=== PATIENT | male | born 1930 | race Caucasian/White ===

== ENCOUNTER 2017-01-23 21:05 | Inpatient (IN) | payer MEDICARE ==
[~2017-01-23] VITALS: Ht 149.9 cm; Wt 80.3 kg
[~2017-01-23 21:05] MED LIST: LISI40TA4 PO; METO25TA6 PO
--- NOTE | 2017-01-23 21:15 | NUR ---
BB DAUGHTER FOR ALTERED MENTAL STATUS. PT AOX3 WITH PERIODS OF CONFUSION. RR EVEN AND UNLABORED. NO SOB NOTED. NAD NOTED. NO NVD AT THIS TIME. PT GOWNED AND PLACED ON MONITOR WAITING FOR MD WILLS
[2017-01-23] MEDS ORDERED: CLOP75TA2 PO (21:18)
--- NOTE | 2017-01-23 21:22 | NUR ---
DR. ALBA AT BEDSIDE FOR EVAL.
[2017-01-23] MEDS ORDERED: IV NS 0.9% 500 ML BAG IV ONE (21:30)
[2017-01-23 21:35] LABS: BASOPHILS % (AUTO) 0.4 % (0.0-2.0); EOSINOPHILS # (AUTO) 0.1 /CMM (0.0-0.7); EOSINOPHILS % (AUTO) 0.9 % (0.0-6.0); HEMATOCRIT 42 % (39-51); HEMOGLOBIN 13.9 g/dL (13.5-17.5); LYMPHOCYTES # (AUTO) 0.6 /CMM (0.8-4.8); LYMPHOCYTES % (AUTO) 6.9 % (20.0-44.0); MEAN CORPUSCULAR HEMOGLOBIN 28 PG (26.0-33.0); MEAN CORPUSCULAR HGB CONC 33 g/dl (31.0-36.0); MEAN CORPUSCULAR VOLUME 86 fL (80-96); MONOCYTES # (AUTO) 0.4 /CMM (0.1-1.30); MONOCYTES % (AUTO) 4.6 % (2.0-12.0); NEUTROPHILS # (AUTO) 7.4 /CMM (1.8-8.9); NEUTROPHILS % (AUTO) 87.2 % (43.0-81.0); PLATELET COUNT (AUTO) 280 /CMM (150-450); RDW COEFFICIENT OF VARIATION 14.9 (11.5-15.0); RED BLOOD CELL COUNT(AUTO) 4.92 MIL/uL (4.5-6.0); WHITE BLOOD COUNT (AUTO) 8.5 K/uL (4.3-11.0)
[2017-01-23 21:45] LABS: CALCIUM, SERUM 9.3 mg/dL (8.5-10.1); CARBON DIOXIDE 28 mmol/L (21-32); CHLORIDE 103 mmol/L (98-107); CREATININE 1.1 mg/dL (0.6-1.3); GLUCOSE 155 mg/dL (74-106); POTASSIUM 4.1 mmol/L (3.5-5.1); SODIUM SERUM 138 mmol/L (136-145); UREA NITROGEN, BLOOD 24 mg/dL (7-18)
[2017-01-23 21:49] LABS: INR 0.95 (0.87-1.13); PROTHROMBIN TIME 9.9 SECS (9.5-12.7)
--- NOTE | 2017-01-23 21:50 | NUR ---
URINE COLLECTED. CALLED LAB FOR ANALYTICAL STATISTICIAN.
[2017-01-23 21:51] LABS: ALANINE AMINOTRANSFERASE 28 U/L (12-78); ALBUMIN 3.9 g/dL (3.4-5.0); ALKALINE PHOSPHATASE 91 U/L (46-116); ASPARTATE AMINOTRANSFERASE 27 U/L (15-37); BILIRUBIN,DIRECT 0.1 mg/dL (0.0-0.2); BILIRUBIN,TOTAL 0.4 mg/dL (0.2-1.0); TOTAL PROTEIN, SERUM 7.6 g/dL (6.4-8.2)
[2017-01-23 21:53] LABS: TROPONIN I 0.017 ng/mL (0.00-0.056)
--- NOTE | 2017-01-23 21:58 | NUR ---
PT TO CT.
[2017-01-23 22:17] LABS: APPEARANCE,URINE CLEAR (CLEAR); BILIRUBIN,URINE NEGATIVE (NEGATIVE); BLOOD, URINE 2+ Ery/uL (NEGATIVE); COLOR,URINE YELLOW (YELLOW); KETONES,URINE NEGATIVE (NEGATIVE); LEUKOCYTE ESTERASE ,URINE NEGATIVE (NEGATIVE); NITRITE, URINE NEGATIVE (NEGATIVE); PROTEIN,URINE NEGATIVE (NEGATIVE); UGLUCOSE NEGATIVE (NEGATIVE); UROBILINOGEN,URINE 0.2 EU/dL (0.2)
[2017-01-23 22:22] LABS: BACTERIA,URINE Few /HPF (None Seen); RBC,URINE 21-50 /HPF (0-2); SQUAMOUS EPITHELIAL CELL,UR Few /HPF (None Seen); WBC,URINE 0-2 /HPF (0-3)
[2017-01-23] MEDS ORDERED: LABETALOL HCL IV 100MG VIAL IV ONE (22:30)
--- NOTE | 2017-01-23 22:37 | NUR ---
TELE 103
--- NOTE | 2017-01-23 22:40 | NUR ---
PT RETURNED FROM CT.
[2017-01-23] MEDS ORDERED: LABETALOL 20 MG/4 ML VIAL ONE (22:48)
[2017-01-23] MEDS ORDERED: hydrALAZINE HCL IV 20 MG VIAL IV PRN (23:30)
--- NOTE | 2017-01-23 23:39 | NUR ---
FELICIA ARAYA AWARE PT'S CURRENT BP. PER MD TO HOLD HYDRAZLINE AT THIS TIME,.
[2017-01-23] MEDS ORDERED: IV NS 0.9% 1,000 ML IV PRN (23:46)
--- NOTE | 2017-01-23 23:55 | NUR ---
COMPLAINT INVESTIGATOR: RECEIVED PT FROM ER VIA EDIE AND ABLE TO WALK TOWARDS BED. A/O X 3 FOR PRIMARY DX OF TIA. ON R/A WT NO ACUTE DISTRESS. NO C/O PAIN OR EVIDENCE OF DISCOMFORT. ABLE TO AMBULATE TO THE RESTROOM. BODY ASSESSMENT DONE WT NO SKIN BREAKDOWN. DAUGHTER AT BEDSIDE. WILL MONITOR BP CLOSELY. SAFETY PRECAUTION NOTED. CALL LIGHT KEPT WITHIN EASY REACH.
--- NOTE | 2017-01-23 23:59 | NUR ---
PT TRANSFERRED PER ACLS PROTOCOL
[2017-01-24] VITALS (9 sets, daily range): BP systolic 122–227; BP diastolic 43–80
[2017-01-24] MEDS ORDERED: ONDANSETRON HCL/PF 4 MG/2 ML VIAL IVP PRN
[2017-01-24] MEDS ORDERED: hydrALAZINE HCL 25 MG TABLET PO PRN
[2017-01-24] MEDS ORDERED: ACETAMINOPHEN 325 MG TABLET PO PRN
[2017-01-24] MEDS ORDERED: ZOLPIDEM TARTRATE 5 MG TABLET PO PRN
[2017-01-24] MEDS ORDERED: ENOXAPARIN SODIUM 40 MG/0.4 ML DISP.SYRIN SQ SCH
[2017-01-24] MEDS ORDERED: LISINOPRIL (20MG) 20 MG TABLET ONE (00:42)
[2017-01-24] MEDS ORDERED: METOPROLOL TARTRATE 50 MG TABLET ONE (00:43)
[2017-01-24] MEDS ORDERED: ENOXAPARIN SODIUM 40 MG/0.4 ML DISP.SYRIN SQ ONE (00:43)
[2017-01-24] MEDS: LISINOPRIL (20MG) 20 MG TABLET PO SCH ×2 (00:53→08:49)
[2017-01-24] MEDS: METOPROLOL TARTRATE 25 MG TABLET PO SCH ×2 (01:15→08:49)
[2017-01-24] MEDS ORDERED: hydrALAZINE HCL 25 MG TABLET ONE (04:20)
--- NOTE | 2017-01-24 04:25 | NUR ---
NETWORK PLANNER: GIVEN HYDRALAZINE 25MG PO ORDERED FOR SBP ABOVE 160. WILL CONTINUE TO MONITOR EFFECTIVITY. PT KEPT WALKING AROUND THE HALLWAY WT STANDBY ASSISTANCE AT ALL TIMES. HE SAID HE WANTED TO URINATE MORE AND WALKING WILL HELP HIM VOID BETTER. HE STATED, "I HAVE A BASHFUL BLADDER". NO C/O OF ABDOMINAL DISCOMFORT AND WAS ABLE TO VOID IN THE RESTROOM. REMAINED A/O X3. SAFETY PRECAUTION NOTED AT ALL TIMES.
--- NOTE | 2017-01-24 05:30 | NUR ---
DISABILITY ATTORNEY: RECHECK BLOOD PRESSURE AND IMPROVED AT 154/78. REMAINED A/O X 3. NO ACUTE DISTRESS, NO C/O PAIN. REMAINS AMBULATORY. SAFETY PRECAUTION NOTED AT ALL TIMES
[2017-01-24 06:25] LABS: BASOPHILS % (AUTO) 0.9 % (0.0-2.0); EOSINOPHILS # (AUTO) 0.1 /CMM (0.0-0.7); EOSINOPHILS % (AUTO) 1.8 % (0.0-6.0); HEMATOCRIT 38 % (39-51); HEMOGLOBIN 12.7 g/dL (13.5-17.5); LYMPHOCYTES # (AUTO) 0.8 /CMM (0.8-4.8); LYMPHOCYTES % (AUTO) 14.3 % (20.0-44.0); MEAN CORPUSCULAR HEMOGLOBIN 29 PG (26.0-33.0); MEAN CORPUSCULAR HGB CONC 33 g/dl (31.0-36.0); MEAN CORPUSCULAR VOLUME 86 fL (80-96); MONOCYTES # (AUTO) 0.4 /CMM (0.1-1.30); MONOCYTES % (AUTO) 7.2 % (2.0-12.0); NEUTROPHILS % (AUTO) 75.8 % (43.0-81.0); PLATELET COUNT (AUTO) 228 /CMM (150-450); RDW COEFFICIENT OF VARIATION 16.2 (11.5-15.0); RED BLOOD CELL COUNT(AUTO) 4.42 MIL/uL (4.5-6.0); WHITE BLOOD COUNT (AUTO) 5.3 K/uL (4.3-11.0)
[2017-01-24 06:45] LABS: CHOLESTEROL 162 mg/dL (<200); HDL CHOLESTEROL 39 mg/dL (40-60); LDL 108 mg/dL (0-99); TRIGLYCERIDES 111 mg/dL (30-150)
[2017-01-24 07:00] LABS: ALANINE AMINOTRANSFERASE 27 U/L (12-78); ALBUMIN 3.3 g/dL (3.4-5.0); ALKALINE PHOSPHATASE 79 U/L (46-116); ASPARTATE AMINOTRANSFERASE 33 U/L (15-37); BILIRUBIN,TOTAL 0.5 mg/dL (0.2-1.0); CALCIUM, SERUM 8.8 mg/dL (8.5-10.1); CHLORIDE 104 mmol/L (98-107); GLUCOSE 100 mg/dL (74-106); MAGNESIUM 1.9 mg/dL (1.8-2.4); PHOSPHORUS 3.2 mg/dL (2.5-4.9); POTASSIUM 4.5 mmol/L (3.5-5.1); SODIUM SERUM 139 mmol/L (136-145); TOTAL PROTEIN, SERUM 6.5 g/dL (6.4-8.2); UREA NITROGEN, BLOOD 20 mg/dL (7-18)
[2017-01-24 07:04] LABS: CARBON DIOXIDE 27 mmol/L (21-32)
--- NOTE | 2017-01-24 07:46 | NUR ---
RN notes: Patient received in stable condition alert awake ox4. able to make needs known. on room air, no breathing difficulty noted. ambulatory in [address] & [facility]. safety measures observed. call light within reach. will continue to monitor.
[2017-01-24] MEDS ORDERED: CLOPIDOGREL BISULFATE 75 MG TABLET PO SCH (09:00)
--- NOTE | 2017-01-24 14:59 | NUR ---
Spoke with daughter Simona [phone], patient lives alone with his pet cat. Prior to admission, patient was ambulatory and independent with adl's. Has no DME or homehealth reported. Daughter is very involved and supportive, does patient groceries 2x/week, Patient pcp is Dr. Dylon Tijerina at [address] [place] [address]. Plan is to return home , daughter will provide ride once discharge. Addendum: 01/24/17 at 1459 by CHERYL ABRAHAM RN Amended: Links added.
[2017-01-24] MEDS ORDERED: ATOR10TA PO (15:00)
--- NOTE | 2017-01-24 16:17 | NUR ---
Social service consult requested by Dr. Valenzuela to assess living situation. Pt. is a 86 year old male who was admitted to [facility] for mental status change and ALOC. Pt. is alert and oriented x 3. Pt. resides alone with his cat at [address] in [place]. [place] Pt's daughter is his caregiver and brings him groceries twice a week. Pt. is independent with his ADL's. No social service needs are requested at this time. Pt. will be going back home once medically cleared.
--- NOTE | 2017-01-24 17:02 | NUR ---
RN NOTES(DISCHARGE NOTE): Patient discharge to home in stable condition alert awake ox4. On room air, breathing pattern regular & unlabored. denies chest pain & discomfort. Discharge instructions given to the patient & Daughter at bedside, verbalize to understand. Stroke education, stroke packet include sign symptoms discussed with patient & written material given to the patient. follow up appointment information given to the daughter, copy placed in the chart. lipitor prescription given to the daughter. before discharge spoke with Michaela ORE SMELTER, reminder about stroke discharge checklist( hospital Protocol), OT, ST evaluation not done yet, according to her patient does not need to get evaluated. Flu vaccine education provide to the patient & daughter, said will follow up with primary doctor. upon discharge, patient & daughter Rajani verbalize to understand discharge instructions. left with all belongings via wheelchair from floor. accompanied by daughter via private car.
[2017-01-24] MEDS ORDERED: ATORVASTATIN 10 MG TABLET PO SCH (22:00)
== END 2017-01-24 17:00 | disposition home or self-care (01) | DRG 79 ==
LOC: ER 21:07 → TELE1 22:49
PROVIDERS: ADMIT Nurse Practitioner Acute Care; ATTEND Nurse Practitioner Acute Care
DX: I67.4 Hypertensive encephalopathy (principal); B35.1 Tinea unguium; E66.9 Obesity, unspecified; E78.5 Hyperlipidemia, unspecified; M40.209 Unspecified kyphosis, site unspecified; I10 Essential (primary) hypertension; I87.2 Venous insufficiency (chronic) (peripheral); H40.9 Unspecified glaucoma; Z79.899 Other long term (current) drug therapy; Z86.73 Personal history of transient ischemic attack (TIA), and cerebral infarction without residual deficits; Z91.19 Patient's noncompliance with other medical treatment and regimen; M81.0 Age-related osteoporosis without current pathological fracture; Z68.35 Body mass index [BMI] 35.0-35.9, adult; Z82.3 Family history of stroke
CPT/HCPCS: 36415; 70450-TC; 71010-TC; 80048-TC; 80053-TC; 80061-TC; 80076-TC; 81000-TC; 82962-TC; 83735-TC; 84100-TC; 84443-TC; 84484-TC; 85025-TC; 85730-TC; 87081-TC; 87086-TC; 93307-TC; 93880-TC; A4606; J1650; J3490; J7030; J7040; Z7610

== ENCOUNTER 2017-03-17 21:06 | Emergency (ER) | payer MEDICARE ==
[~2017-03-17] VITALS: Ht 152.4 cm; Wt 71.7 kg
[~2017-03-17 21:06] MED LIST changes: +ATOR10TA PO; +CLOP75TA15 PO
--- NOTE | 2017-03-17 21:30 | NUR ---
PT TO ER BED 5. PT BIB DAUGHTER C/O BLEEDING FROM TIP OF PENIS X 2 DAYS. NO ACTIVE BLEEDING NOTED ON ARRIVAL BY NURSE. PT PLACED IN GOWN AND ON HOSPITAL CLEANER. VSS/RESP EVEN UNLABORED/NAD NOTED/SKIN WARM AND DRY/DENIES N-V-D/AOX4. AWAITING MD WILLS.
[2017-03-17 22:55] LABS: BASOPHILS # (AUTO) 0.2 /CMM (0.0-0.2); BASOPHILS % (AUTO) 1.6 % (0.0-2.0); EOSINOPHILS % (AUTO) 0.1 % (0.0-6.0); HEMATOCRIT 39 % (39-51); HEMOGLOBIN 13.2 g/dL (13.5-17.5); LYMPHOCYTES # (AUTO) 0.4 /CMM (0.8-4.8); LYMPHOCYTES % (AUTO) 4.1 % (20.0-44.0); MEAN CORPUSCULAR HEMOGLOBIN 29 PG (26.0-33.0); MEAN CORPUSCULAR HGB CONC 34 g/dl (31.0-36.0); MEAN CORPUSCULAR VOLUME 86 fL (80-96); MONOCYTES # (AUTO) 0.8 /CMM (0.1-1.30); MONOCYTES % (AUTO) 7.2 % (2.0-12.0); PLATELET COUNT (AUTO) 281 /CMM (150-450); RDW COEFFICIENT OF VARIATION 14.7 (11.5-15.0); RED BLOOD CELL COUNT(AUTO) 4.54 MIL/uL (4.5-6.0); WHITE BLOOD COUNT (AUTO) 10.4 K/uL (4.3-11.0)
[2017-03-17 23:11] LABS: APPEARANCE,URINE CLOUDY (CLEAR); BILIRUBIN,URINE 3+ (NEGATIVE); BLOOD, URINE 3+ Ery/uL (NEGATIVE); KETONES,URINE 1+ (NEGATIVE); LEUKOCYTE ESTERASE ,URINE 2+ (NEGATIVE); NITRITE, URINE POSITIVE (NEGATIVE); PROTEIN,URINE 3+ mg/dl (NEGATIVE); UGLUCOSE TRACE mg/dL (NEGATIVE)
[2017-03-17 23:12] LABS: CALCIUM, SERUM 10.8 mg/dL (8.5-10.1); CARBON DIOXIDE 28 mmol/L (21-32); CHLORIDE 106 mmol/L (98-107); CREATININE 1.3 mg/dL (0.6-1.3); GLUCOSE 160 mg/dL (74-106); POTASSIUM 5.1 mmol/L (3.5-5.1); SODIUM SERUM 144 mmol/L (136-145); UREA NITROGEN, BLOOD 29 mg/dL (7-18)
[2017-03-17 23:13] LABS: COLOR,URINE RED (YELLOW)
[2017-03-17 23:21] LABS: RBC,URINE TOO NUMEROUS TO COUN /HPF (0-2)
[2017-03-17 23:22] LABS: BACTERIA,URINE Many /HPF (None Seen); SQUAMOUS EPITHELIAL CELL,UR None Seen /HPF (None Seen); WBC,URINE 51-80 /HPF (0-3)
[2017-03-18] MEDS ORDERED: CEPHALEXIN MONOHYDRATE 500 MG CAPSULE PO ONE ×2 (00:03)
[2017-03-18 06:26] VITALS: BP 154/79
== END 2017-03-18 00:10 | disposition home or self-care (01) ==
LOC: ER 21:09
DX: N30.90 Cystitis, unspecified without hematuria (principal); I10 Essential (primary) hypertension; M81.0 Age-related osteoporosis without current pathological fracture; Z87.440 Personal history of urinary (tract) infections; Z98.890 Other specified postprocedural states
CPT/HCPCS: 36415; 80048; 81001; 85025; 87077; 87086; 87186; 99284; A4606; 81000-TC; Z7610

== ENCOUNTER 2017-03-20 15:30 | Inpatient (IN) | payer MEDICARE ==
[~2017-03-20] VITALS: Ht 152.4 cm; Wt 78.0 kg
--- NOTE | 2017-03-20 16:10 | NUR ---
PATIENT TO ED DT FLANK PAIN, 6/10, NON RADIATING. PER PATIENT HE WAS ON ATB FOR UTI BUT NO HELP. PATIENT IS AAO4. APPEARS IN NO APPARENT DISTRESS. SKIN IS WARM TO TOUCH AND NON DIAPHORETIC. PATIENT IS AFEBRILE. VSS, GOWNED PT AND PLACED ON TELE MONITOR. PENDING MD WILLS
[2017-03-20] MEDS ORDERED: IV NS 0.9% 1,000 ML BAG IV ONE (17:00)
[2017-03-20 17:05] LABS: BASOPHILS # (AUTO) 0.4 /CMM (0.0-0.2); BASOPHILS % (AUTO) 3.4 % (0.0-2.0); EOSINOPHILS # (AUTO) 0.1 /CMM (0.0-0.7); EOSINOPHILS % (AUTO) 0.7 % (0.0-6.0); HEMATOCRIT 38 % (39-51); HEMOGLOBIN 12.7 g/dL (13.5-17.5); LYMPHOCYTES # (AUTO) 0.7 /CMM (0.8-4.8); LYMPHOCYTES % (AUTO) 5.6 % (20.0-44.0); MEAN CORPUSCULAR HEMOGLOBIN 29 PG (26.0-33.0); MEAN CORPUSCULAR HGB CONC 33 g/dl (31.0-36.0); MEAN CORPUSCULAR VOLUME 88 fL (80-96); MONOCYTES % (AUTO) 8.1 % (2.0-12.0); NEUTROPHILS # (AUTO) 9.9 /CMM (1.8-8.9); NEUTROPHILS % (AUTO) 82.2 % (43.0-81.0); PLATELET COUNT (AUTO) 346 /CMM (150-450); RDW COEFFICIENT OF VARIATION 14.5 (11.5-15.0); RED BLOOD CELL COUNT(AUTO) 4.34 MIL/uL (4.5-6.0); WHITE BLOOD COUNT (AUTO) 12.1 K/uL (4.3-11.0)
[2017-03-20 17:22] LABS: CALCIUM, SERUM 9.3 mg/dL (8.5-10.1); CARBON DIOXIDE 26 mmol/L (21-32); CHLORIDE 103 mmol/L (98-107); CREATININE 1.5 mg/dL (0.6-1.3); GLUCOSE 131 mg/dL (74-106); INR 1.03 (0.87-1.13); POTASSIUM 3.9 mmol/L (3.5-5.1); PROTHROMBIN TIME 10.7 SECS (9.5-12.7); SODIUM SERUM 141 mmol/L (136-145); UREA NITROGEN, BLOOD 41 mg/dL (7-18)
[2017-03-20 17:28] LABS: ALANINE AMINOTRANSFERASE 26 U/L (12-78); ALBUMIN 3.5 g/dL (3.4-5.0); ALKALINE PHOSPHATASE 79 U/L (46-116); ASPARTATE AMINOTRANSFERASE 24 U/L (15-37); BILIRUBIN,DIRECT 0.1 mg/dL (0.0-0.2); BILIRUBIN,TOTAL 0.6 mg/dL (0.2-1.0); TOTAL PROTEIN, SERUM 7.5 g/dL (6.4-8.2); TROPONIN I < 0.017 ng/mL (0.00-0.056)
--- NOTE | 2017-03-20 17:55 | NUR ---
PT. UNABLE TO LAY ON HIS BACK, UNABLE TO DO CT ABD. PELVIS.
[2017-03-20] MEDS ORDERED: KETOROLAC TROMETHAMINE INJ 30 MG/ML VIAL IV ONE (18:00)
[2017-03-20] MEDS ORDERED: CEFTRIAXONE 1GM BAG (ER ONLY) 1 GM/50 ML PIGGYBACK IV ONE (18:00)
[2017-03-20] MEDS ORDERED: KETOROLAC TROMETHAMINE 15 MG/ML VIAL ONE (18:14)
--- NOTE | 2017-03-20 18:16 | NUR ---
CALLED RT FOR ATB
--- NOTE | 2017-03-20 18:29 | NUR ---
ROCEPHINE 1G GIVEN CANCELLED DUPLICATE ORDER
[2017-03-20] MEDS ORDERED: ATOR10TA PO (18:30)
[2017-03-20] MEDS ORDERED: CEFTRIAXONE 1 G in IV D5W 50 ML IV ONE (18:30)
[2017-03-20] MEDS ORDERED: CEPH-570 PO (18:30)
[2017-03-20] MEDS ORDERED: CIPR-262 PO (18:30)
[2017-03-20 18:50] LABS: APPEARANCE,URINE CLOUDY (CLEAR); BILIRUBIN,URINE 1+ (NEGATIVE); BLOOD, URINE 3+ Ery/uL (NEGATIVE); COLOR,URINE AMBER (YELLOW); KETONES,URINE TRACE (NEGATIVE); LEUKOCYTE ESTERASE ,URINE 2+ (NEGATIVE); NITRITE, URINE NEGATIVE (NEGATIVE); PH,URINE 5.5 (5.0-8.0); PROTEIN,URINE 2+ mg/dl (NEGATIVE); UGLUCOSE NEGATIVE (NEGATIVE); UROBILINOGEN,URINE 0.2 EU/dL (0.2)
[2017-03-20 18:57] LABS: BACTERIA,URINE Few /HPF (None Seen); RBC,URINE TOO NUMEROUS TO COUN /HPF (0-2); SQUAMOUS EPITHELIAL CELL,UR Few /HPF (None Seen); WBC,URINE 21-50 /HPF (0-3)
--- NOTE | 2017-03-20 19:02 | NUR ---
ANITA DANIELLA AT
--- NOTE | 2017-03-20 19:10 | NUR ---
RECEIVED REPORT FROM BOSTON PRIEST FOR COC. FERNANDO AT BEDSIDE AT THIS TIME.
--- NOTE | 2017-03-20 19:10 | NUR ---
REPORT GIVEN TO BOSTON OROZCO
--- NOTE | 2017-03-20 19:17 | NUR ---
DR. MUÑOZ AT BEDSIDE SPEAKING TO PT REGARDING RESULTS.
[2017-03-20] MEDS ORDERED: LIDOCAINE 2% JEL UROJET 10 ML MM ONE (19:19)
[2017-03-20] MEDS ORDERED: MORPHINE SULFATE INJ 4 MG/ML DISP.SYRIN ONE (19:19)
[2017-03-20] MEDS ORDERED: MORPHINE SULFATE INJ 2 MG/ML DISP.SYRIN IV ONE (19:30)
--- NOTE | 2017-03-20 19:37 | NUR ---
PLACED 16 FR LEO CATH. URINE MIGUEL. DR MUÑOZ MADE AWARE
--- NOTE | 2017-03-20 19:48 | NUR ---
PRIMARY CARE PROVIDER IS JEFF MORENO [phone]
--- NOTE | 2017-03-20 19:49 | NUR ---
DR VELEZ WAS PAGED
--- NOTE | 2017-03-20 20:18 | NUR ---
DR. MUÑOZ AT BEDSIDE SPEAKING TO PT REGARDIN RESULTS AND POC.
[2017-03-20] MEDS ORDERED: ACETAMINOPHEN 325 MG TABLET PO PRN (20:30)
[2017-03-20] MEDS ORDERED: CEFTRIAXONE 1 G in IV D5W 50 ML IV SCH (20:30)
[2017-03-20] MEDS ORDERED: ONDANSETRON HCL/PF 4 MG/2 ML VIAL IVP PRN (20:30)
[2017-03-20] MEDS ORDERED: Z GUARD REMEDY 2 OZ OINT TP PRN (20:30)
[2017-03-20] MEDS ORDERED: MAGNESIUM HYDROXIDE 30 ML UDC PO PRN (20:30)
[2017-03-20] MEDS ORDERED: ZOLPIDEM TARTRATE 5 MG TABLET PO PRN (20:30)
[2017-03-20] MEDS ORDERED: MAG HYDROX/AL HYDROX/SIMETH 30 ML UDC PO PRN (20:30)
--- NOTE | 2017-03-20 20:45 | NUR ---
PT TRANSFERRED TO ER BED 6. PT AWARE
--- NOTE | 2017-03-20 20:55 | NUR ---
MEDSUR ROOM 327-2, NURSE IS LAURO
--- NOTE | 2017-03-20 21:30 | NUR ---
REPORT GIVEN TO RVI FOR CARLOS MANUEL TELE BED 327
--- NOTE | 2017-03-20 21:39 | NUR ---
PT TRANSFERRED VIA [facility]
[2017-03-20 21:40] VITALS: BP 137/67
--- NOTE | 2017-03-20 21:40 | NUR ---
RN NOTES RECEIVED PATIENT FROM ER FOR DX UTI. PATIENT AO X 3, ABLE TO MAKE NEEDS KNOWN. NO ACUTE DISTRESS NOTED. DENIES ANY PAIN AT THIS TIME. IV SITE PATENT, INTACT; FLUSHED. LEO CATH PATENT, INTACT; DRAINING JORDY COLORED URINE WITH CLOTS. SKIN ASSESSMENT DONE. SAFETY REMINDERS GIVEN. ON LOW BED WITH BILATERAL UPPER SIDE RAILS UP. CALL PEDRO WITHIN EASY REACH. WILL CONTINUE TO MONITOR.
[2017-03-20] MEDS: IV NS 0.9% 1,000 ML IV PRN (22:54)
[2017-03-20] MEDS ORDERED: ATORVASTATIN 10 MG TABLET ONE (23:01)
[2017-03-20] MEDS: ATORVASTATIN 10 MG TABLET PO SCH (23:02)
--- NOTE | 2017-03-21 06:00 | NUR ---
RN NOTES PATIENT ASLEEP, EASILY AROUSABLE. RESPIRATIONS EVEN. NO SIGNS OF PAIN NOTED. DUE MEDS GIVEN WITH NO ASE NOTED. NEEDS ATTENDED. SAFETY PRECAUTIONS AND COMFORT MEASURES IN PLACE. WILL GIVE REPORT TO DAY SHIFT FOR CONTINUITY OF CARE.
[2017-03-21 08:00] VITALS: BP 138/80
--- NOTE | 2017-03-21 08:00 | NUR ---
RN NOTES RECEIVED PATIENT IN THE ROOM A/O X3, ENCOURAGED TO EXPRESS FEELINGS AND CONCERNS, PATIENT HAS NO RESPIRATORY DISTRESS, V/S TAKEN STABLE, SCHEDULED MEDICATION ADMINISTERED, ASSIST TURN AND REPOSITION Q 2 HR, IV LINE ON RIGHT AC AREA NS 75 ML/HR, CALL LIGHT WITHIN TO REACH, SAFETY PRECAUTION MAINTAINED ALL THE TIME. NEEDS ATTENDED AND ANTICIPATED.
[2017-03-21 08:35] LABS: BASOPHILS % (AUTO) 0.2 % (0.0-2.0); EOSINOPHILS # (AUTO) 0.2 /CMM (0.0-0.7); EOSINOPHILS % (AUTO) 2.7 % (0.0-6.0); HEMATOCRIT 33 % (39-51); HEMOGLOBIN 10.9 g/dL (13.5-17.5); LYMPHOCYTES # (AUTO) 0.6 /CMM (0.8-4.8); LYMPHOCYTES % (AUTO) 8.1 % (20.0-44.0); MEAN CORPUSCULAR HEMOGLOBIN 29 PG (26.0-33.0); MEAN CORPUSCULAR HGB CONC 33 g/dl (31.0-36.0); MEAN CORPUSCULAR VOLUME 89 fL (80-96); MONOCYTES # (AUTO) 0.7 /CMM (0.1-1.30); NEUTROPHILS # (AUTO) 5.5 /CMM (1.8-8.9); PLATELET COUNT (AUTO) 253 /CMM (150-450); RDW COEFFICIENT OF VARIATION 14.2 (11.5-15.0); RED BLOOD CELL COUNT(AUTO) 3.72 MIL/uL (4.5-6.0)
[2017-03-21 08:41] LABS: CALCIUM, SERUM 8.4 mg/dL (8.5-10.1); CARBON DIOXIDE 28 mmol/L (21-32); CHLORIDE 107 mmol/L (98-107); CREATININE 1.3 mg/dL (0.6-1.3); GLUCOSE 100 mg/dL (74-106); MAGNESIUM 2.2 mg/dL (1.8-2.4); PHOSPHORUS 3.6 mg/dL (2.5-4.9); POTASSIUM 3.5 mmol/L (3.5-5.1); SODIUM SERUM 142 mmol/L (136-145); UREA NITROGEN, BLOOD 39 mg/dL (7-18)
[2017-03-21 09:00] VITALS: BP 133/77
[2017-03-21] MEDS: DOCUSATE SODIUM 100 MG CAPSULE PO SCH ×2 (09:09→16:00)
[2017-03-21] MEDS: PANTOPRAZOLE 40 MG TABLET.DR PO SCH (09:09)
[2017-03-21] MEDS: CLOPIDOGREL BISULFATE 75 MG TABLET PO SCH (09:10)
[2017-03-21] MEDS: METOPROLOL TARTRATE 25 MG TABLET PO SCH (09:10)
[2017-03-21] MEDS: LISINOPRIL (20MG) 20 MG TABLET PO SCH (09:11)
[2017-03-21] MEDS: HYDROCODONE/APAP 5/325MG 1 EACH TABLET PO PRN ×2 (11:26→16:57)
--- NOTE | 2017-03-21 11:26 | NUR ---
RN NOTES ADMINISTERED NARCO 5/325 MG PO PRN FOR LOWER BACK PAIN 09/24, PER PATIENT REQUEST, V/S TAKEN BP 138/88, P-74, CONTINUED MONITORING.
--- NOTE | 2017-03-21 14:00 | NUR ---
R NOTES PATIENT IN THE BED, NO ACUTE DISTRESS, ASSIST TURN AND REPOSITION Q 2HR, LEO CATHETER DRAIN RED OUTPUT AWARE OF PATIENT GOING TO SEE UROLOGIST, SAFETY PRECAUTION MAINTAINED ALL THE TIME, CALL LIGHT WITHIN TO REACH.
[2017-03-21] MEDS: IV NS 0.9% 1,000 ML IV PRN (15:19)
[2017-03-21] MEDS: CEFTRIAXONE 1 G in IV D5W 50 ML IV SCH (15:57)
--- NOTE | 2017-03-21 16:50 | NUR ---
RN NOTES ADMINISTERED NARCO 5/325 MG PO PRN FOR LOWER BACK PAIN, ASSIST TURN AND REPOSITION Q 2HR, CONTINUED MONITORING.
--- NOTE | 2017-03-21 17:10 | NUR ---
RN NOTES PATIENT WITH THE UROLOGISTS, CHANGE CATHETER PUT NEW #20, PATIENT TOLERATED PROCEDURE WELL, LEO CATHETER DRAINING STILL DARK RED OUTPUT, NO NEW ORDER, CONTINUED MONITORING.
--- NOTE | 2017-03-21 18:40 | NUR ---
RN NOTES MEDICATION WERE ADMINISTERED FOR PAIN EFFECTIVE ,INFUSING IV NS AT 75ML/HR ON RIGHT WRIST INTACT, V/S STABLE, LEO CATHETER DRAIN DARK RED OUTPUT, DAUGHTER NEXT TO THE BED, NEEDS ATTENDED AND ANTICIPATED. ENDORSED ONCOMING NURSE FOR CONTINUATION OF CARE.
--- NOTE | 2017-03-21 19:20 | NUR ---
MS/RN OPENING NOTES PT RECEIVED WITH FAMILY AT BEDSIDE. A/OX4. ON ROOM AIR, BREATHING EVEN AND UNLABORED. IN NO APPARENT DISTRESS. DENIES SOB OR PAIN AT THIS TIME. FAMILY MEMBER UPSET AND YELLING IN HALLWAY DUE TO IVF NOT RUNNING AT THIS TIME. DAY SHIFT RN AND I RESTARTED IVF AND CALMED HIM DOWN. OTHERWISE PT IS RESTING COMFORTABLY IN BED. LEO IN PLACE AND DRAINING TO GRAVITY, RED OUTPUT NOTED. S/P NEW LEO INSERTION BY UROLOGIST TODAY. IV TO RIGHT WRIST PATENT AND INTACT, RUNNING IVF ORDERED. BED IN LOW/LOCKED POSITION WITH CALL LIGHT IN REACH. SIDE RAILS UPX2. WILL CONTINUE TO MONITOR
[2017-03-21 20:00] VITALS: BP 121/57
--- NOTE | 2017-03-21 22:00 | NUR ---
MS/RN NOTES PT BECOMING DISORIENTED. PT STATES "ITS FROM THE DRUGS". PT RECEIVED NORCO AT APPROX 1700. REORIENTED PRN. PROVIDED EMOTIONAL SUPPORT.
[2017-03-21] MEDS: ATORVASTATIN 10 MG TABLET PO SCH (22:49)
--- NOTE | 2017-03-22 06:52 | NUR ---
MS/RN CLOSING NOTES PT AWAKE, RESTING COMFORTABLY IN BED. A/OX4 HOWEVER REMAINS DISORIENTED AT TIMES. FREQUENT REORIENTATION PROVIDED DURING SHIFT. ON ROOM AIR, BREATHING EVEN AND UNLABORED. DENIES SOB OR PAIN AT THIS TIME. APPEARS COMFORTABLE. IV TO RIGHT WRIST PATENT AND INTACT RUNNING IVF ORDERED. LEO IN PLACE AND DRAINING TO GRAVITY. OUTPUT NOW WITHOUT HEMATURIA. MADE PT COMFORTABLE POSSIBLE DURING SHIFT. ALL NEEDS MET. BED REMAINS IN LOW/LOCKED POSITION WITH CALL LIGHT IN REACH. SIDE RAILS UPX3 AND BED ALARM ON FOR SAFETY. WILL ENDORSE TO DAY SHIFT RN CARLOS MANUEL.
[2017-03-22 08:00] VITALS: BP 121/74
--- NOTE | 2017-03-22 08:00 | NUR ---
RN NOTES RECEIVE PATIENT IN THE BED, A/O X3, NO ACUTE RESPIRATORY DISTRESS, PATIENT REFUSED PAIN AT THIS TIME, V/S TAKEN STABLE, IN INFUSING IN RIGHT HAND NS AT 75 ML /HR, INTACT, F/C DRAIN LIGHT YELLOW OUTPUT, CALL LIGHT WITHIN TO REACH, SAFETY PRECAUTION MAINTAINED ALL THE TIME.
--- NOTE | 2017-03-22 10:00 | NUR ---
rn notes patient resting in the bed resting , no acute distress, call light within to reach, safety precaution maintained all the time.
[2017-03-22] MEDS: CLOPIDOGREL BISULFATE 75 MG TABLET PO SCH (10:13)
[2017-03-22] MEDS: DOCUSATE SODIUM 100 MG CAPSULE PO SCH ×2 (10:13→16:09)
[2017-03-22] MEDS: METOPROLOL TARTRATE 25 MG TABLET PO SCH (10:13)
[2017-03-22] MEDS: LISINOPRIL (20MG) 20 MG TABLET PO SCH (10:13)
[2017-03-22] MEDS: PANTOPRAZOLE 40 MG TABLET.DR PO SCH (10:14)
[2017-03-22] MEDS: IV NS 0.9% 1,000 ML IV PRN (10:14)
--- NOTE | 2017-03-22 10:58 | NUR ---
WOUND CARE CONSULT: PT REFUSED SKIN ASSESSMENT. ALL SKIN PROTECTION MEASURES IN PLACE AND DISCUSSED WITH NURSING STAFF. CURRENT DAREK SCORE IS 17.
[2017-03-22 16:00] VITALS: BP 149/75
[2017-03-22] MEDS: CEFTRIAXONE 1 G in IV D5W 50 ML IV SCH (16:07)
--- NOTE | 2017-03-22 17:00 | NUR ---
RN NOTES PATIENT IN THE RESTING, NO ACUTE DISTRESS, V/S STABLE, NO C/O PAIN AT THIS TIME, F/C DRAIN LIGHT YELLOW OUTPUT,DAUGHTER NEXT TO THE BED, CALL LIGHT WITHIN TO REACH, CONTINUED MONITORING.
--- NOTE | 2017-03-22 18:30 | NUR ---
RN NOTES PATIENT IN THE BED RESTING, NO ACUTE DISTRESS, CALL LIGHT WITHIN TO REACH. ENDORSED ONCOMING NURSE FOR CONTINUATION OF CARE.
--- NOTE | 2017-03-22 19:20 | NUR ---
MS/RN OPENING NOTES PT RECEIVED AWAKE, HOB ELEVATED. ON ROOM AIR, BREATHING EVEN AND UNLABORED. IN NO APPARENT DISTRESS. DENIES SOB OR PAIN AT THIS TIME. LEO IN PLACE AND DRAINING TO GRAVITY. OUTPUT PINK TINGED. IV TO RIGHT WRIST PATENT AND INTACT RUNNING IVF ORDERED. BED IN LOW/LOCKED POSITION WITH CALL LIGHT IN REACH. SIDE RAILS UPX2 AND BED ALARM ON FOR SAFETY. WILL CONTINUE TO MONITOR
[2017-03-22 20:00] VITALS: BP 152/91
[2017-03-22] MEDS: ATORVASTATIN 10 MG TABLET PO SCH (21:43)
--- NOTE | 2017-03-22 22:06 | NUR ---
MS/RN NOTES PT NOTED WITH OPEN BACK WOUND. WOUND CONSULT ORDERED. COVERED WITH MEPILEX FOR PROTECTION.
[2017-03-23] MEDS: IV NS 0.9% 1,000 ML IV PRN ×2 (01:33→19:06)
--- NOTE | 2017-03-23 07:41 | NUR ---
MS/RN CLOSING NOTES PT ASLEEP, EASILY AROUSABLE TO NAME. A/OX2 WITH EPISODES OF CONFUSION. FREQUENT REORIENTATION PROVIDED. ON ROOM AIR, BREATHING EVEN AND UNLABORED. IN NO APPARENT DISTRESS. DENIES SOB OR PAIN. IV TO RIGHT WRIST PATENT AND INTACT RUNNING IVF ORDERED. NO SIGNIFICANT CHANGES OVERNIGHT. MADE PT COMFORTABLE DURING SHIFT. ALL NEEDS MET. ASSISTED WITH TURNING/REPOSITIONING Q2H. BED REMAINS IN LOW/LOCKED POSITION WITH CALL LIGHT IN REACH. SIDE RAILS UPX3 AND BED ALARM ON FOR SAFETY. ENDORSED TO DAY SHIFT RN CARLOS MANUEL.
[2017-03-23 08:00] VITALS: BP 167/82
--- NOTE | 2017-03-23 08:00 | NUR ---
RN-NOTES RECEIVE PATIENT SLEEPING IN HIS BED WITH BREATHING EVEN AND NONLABORED,EASILY AROUSES. TOOK ALL DUE MEDS. WELL TOLERATED. IV FLUID INFUSING WELL ON RIGHT ARM. NO COMPLICATION NOTED ON IV SITE.
[2017-03-23 08:08] LABS: BASOPHILS % (AUTO) 0.5 % (0.0-2.0); EOSINOPHILS # (AUTO) 0.3 /CMM (0.0-0.7); EOSINOPHILS % (AUTO) 3.8 % (0.0-6.0); HEMATOCRIT 30 % (39-51); HEMOGLOBIN 10.1 g/dL (13.5-17.5); LYMPHOCYTES # (AUTO) 0.6 /CMM (0.8-4.8); LYMPHOCYTES % (AUTO) 8.7 % (20.0-44.0); MEAN CORPUSCULAR HEMOGLOBIN 30 PG (26.0-33.0); MEAN CORPUSCULAR HGB CONC 33 g/dl (31.0-36.0); MEAN CORPUSCULAR VOLUME 90 fL (80-96); MONOCYTES # (AUTO) 0.5 /CMM (0.1-1.30); MONOCYTES % (AUTO) 7.5 % (2.0-12.0); NEUTROPHILS # (AUTO) 5.6 /CMM (1.8-8.9); NEUTROPHILS % (AUTO) 79.5 % (43.0-81.0); PLATELET COUNT (AUTO) 272 /CMM (150-450); RED BLOOD CELL COUNT(AUTO) 3.39 MIL/uL (4.5-6.0); WHITE BLOOD COUNT (AUTO) 7.1 K/uL (4.3-11.0)
[2017-03-23 08:21] LABS: CALCIUM, SERUM 7.4 mg/dL (8.5-10.1); CARBON DIOXIDE 26 mmol/L (21-32); CHLORIDE 108 mmol/L (98-107); CREATININE 0.8 mg/dL (0.6-1.3); GLUCOSE 123 mg/dL (74-106); POTASSIUM 3.2 mmol/L (3.5-5.1); SODIUM SERUM 143 mmol/L (136-145); UREA NITROGEN, BLOOD 19 mg/dL (7-18)
[2017-03-23] MEDS: PANTOPRAZOLE 40 MG TABLET.DR PO SCH (08:31)
[2017-03-23] MEDS: CLOPIDOGREL BISULFATE 75 MG TABLET PO SCH (08:43)
[2017-03-23] MEDS: METOPROLOL TARTRATE 25 MG TABLET PO SCH (08:48)
[2017-03-23] MEDS: LISINOPRIL (20MG) 20 MG TABLET PO SCH (08:48)
[2017-03-23] MEDS: DOCUSATE SODIUM 100 MG CAPSULE PO SCH ×2 (08:49→17:00)
[2017-03-23] MEDS ORDERED: LEVO500T75 PO (09:49)
[2017-03-23] MEDS: HYDROCODONE/APAP 5/325MG 1 EACH TABLET PO PRN (10:54)
[2017-03-23] MEDS ORDERED: POTASSIUM CHLORIDE 20 MEQ TAB.PRT.SR PO ONE (11:00)
[2017-03-23 16:00] VITALS: BP 123/76
[2017-03-23] MEDS: CEFTRIAXONE 1 G in IV D5W 50 ML IV SCH (16:27)
--- NOTE | 2017-03-23 19:47 | NUR ---
RN-NOTES PATIENT AWAKE ,ALERT LAYING IN HIS BED INTERACTING WITH FAMILY HIS DTR. NO ACUTE DISTRESS NOTED. ALL NEEDS ATTENDED AND ANTICIPATED. STILL ON IV FLUID INFUSING WELL. ENDORSE TO NIGHT NURSE FOR CONTINUITY OF CARE.
--- NOTE | 2017-03-23 19:54 | NUR ---
RN NOTES RECEIVED PATIENT IN BED, ALERT AND ORIENTED X3, ABLE TO VERBALIZE NEEDS, NO SOB, NO DISTRESS, TOLERATING ROOM AIR, RIGHT WRIST PERIPHERAL LINE IS PATENT AND INFUSING WELL, LEO CATHETER DRAINING WITH DARK YELLOW URINE AND WITH TINGE OF BLOOD, DAUGHTER AT THE BEDSIDE REQUESTING EXTENDED HOSPITAL STAY UNTIL URINARY BLOOD CLOT IS RESOLVED AND DOES NOT OCCUR AGAIN. KEPT SAFE AND COMFORTABLE, DAUGHTER AT THE BEDSIDE.
[2017-03-23 20:00] VITALS: BP 179/89
--- NOTE | 2017-03-23 21:15 | NUR ---
NOTIFIED DR. VELEZ REGARDING ELEVATED BP OF 171/89 90 AND 171/72 81, NEW ORDER OF CLONIDINE 0.1 MG PO PRN FOR SBP > 160, ORDER NOTED AND CARRIED OUT
[2017-03-23] MEDS: ATORVASTATIN 10 MG TABLET PO SCH (21:44)
[2017-03-23] MEDS: CLONIDINE HCL 0.1 MG TABLET PO PRN (21:52)
--- NOTE | 2017-03-23 22:00 | NUR ---
PATIENT GIVEN CLONIDINE 0.1 MG PO FOR SBP > 160
--- NOTE | 2017-03-24 06:44 | NUR ---
PATIENT IS AWAKE AND ALERT, WITH EPISODE OF CONFUSION, RE-ORIENTED TO TIME, PLACE AND SITUATION PRN, NO SOB, TOLERATING ROOM AIR, NO ADVERSE CHANGE OF CONDITION DURING SHIFT. LEO CATHETER IS DRAINING, NO HEMATURIA NOTED. REPOSITIONED FOR COMFORT, ALL NEEDS ATTENDED, CALL LIGHT WITHIN REACH.
--- NOTE | 2017-03-24 07:30 | NUR ---
MS RN OPENING NOTES RECEIVED PATIENT IN STABLE CONDITION IN NO APPARENT DISTRESS. PATIENT IS RESTING IN BED. BEDSIDE RAILS ARE UP X 2. BED IS LOCKED AND LOWERED. WILL CONTINUE TO MONITOR.
[2017-03-24 08:00] VITALS: BP 135/68
[2017-03-24 08:40] LABS: CALCIUM, SERUM 7.5 mg/dL (8.5-10.1); CARBON DIOXIDE 27 mmol/L (21-32); CHLORIDE 109 mmol/L (98-107); CREATININE 0.8 mg/dL (0.6-1.3); GLUCOSE 100 mg/dL (74-106); POTASSIUM 3.5 mmol/L (3.5-5.1); SODIUM SERUM 142 mmol/L (136-145); UREA NITROGEN, BLOOD 12 mg/dL (7-18)
[2017-03-24] MEDS: PANTOPRAZOLE 40 MG TABLET.DR PO SCH (08:40)
[2017-03-24] MEDS: METOPROLOL TARTRATE 25 MG TABLET PO SCH (08:40)
[2017-03-24] MEDS: LISINOPRIL (20MG) 20 MG TABLET PO SCH (08:41)
[2017-03-24] MEDS: CLOPIDOGREL BISULFATE 75 MG TABLET PO SCH (08:41)
[2017-03-24] MEDS: DOCUSATE SODIUM 100 MG CAPSULE PO SCH ×2 (08:41→16:16)
[2017-03-24] MEDS: CEFTRIAXONE 1 G in IV D5W 50 ML IV SCH (15:50)
[2017-03-24 16:00] VITALS: BP 160/80
--- NOTE | 2017-03-24 17:12 | NUR ---
GAVE REPORT TO IVANNA MEAD FROM [facility]. PATIENT WILL BE PICKED UP VIA AMBULANCE AT 1900. PATIENTS BELONGINGS WERE VERIFIED. Addendum: 03/24/17 at 1714 by CHARLES MURCIA RN [facility] [phone].
--- NOTE | 2017-03-24 19:30 | NUR ---
MS RN CLOSING NOTES PATIENT IS RESTING IN BED. BEDSIDE RAILS ARE UP X 2. BED IS LOCKED AND LOWERED. WILL ENDORSE CARE TO INVESTMENT BANKING ASSOCIATE NURSE FOR CARLOS MANUEL.
--- NOTE | 2017-03-24 19:50 | NUR ---
MS RN INITIAL NOTES PT IS IN BED RESTING WITH FAMILY AT BEDSIDE. BREATHING EVENLY AND UNLABORED ON RA. NO SIGNS OF SOB OR DISTRESS. SET FOR DISCHARGE TO [facility], AWAITING AMBULZN FOR INCINERATOR PLANT SUPERVISOR. FAMILY IS NOT HAPPY WITH THE DELAY IN TIME. BED IS IN LOW AND LOCKED POSITION, CALL LIGHT WITHIN REACH. WILL CONTINUE TO MONITOR PT.
[2017-03-24 20:54] VITALS: BP 158/88
[2017-03-24] MEDS: CLONIDINE HCL 0.1 MG TABLET PO PRN (21:35)
[2017-03-24] MEDS: ATORVASTATIN 10 MG TABLET PO SCH (22:17)
--- NOTE | 2017-03-24 22:27 | NUR ---
SPOKE WITH IVANNA FROM [facility]. PT BP IS ELEVATED AND UNABLE TO TRANSFER HIM TONIGHT, PRN CATAPRES WAS GIVEN. WILL CONTINUE TO MONITOR PT
--- NOTE | 2017-03-25 06:19 | NUR ---
MS RN CLOSING NOTES PT IS IN BED SLEEPING, EASILY AROUSED. SET FOR D/C TODAY PENDING BP. FC INTACT AND DRAINING WELL. ALL NEEDS WERE ANTICIPATED AND MET. BED IS IN LOW AND LOCKED POSITION, CALL LIGHT IS WITHIN REACH. WILL ENDORSE TO DAYSHIFT.
--- NOTE | 2017-03-25 07:20 | NUR ---
ms rn initial notes Received patient in bed, asleep, head of bed elevated, no sob or distress noted, on room air alert and oriented x 3 verbally responsive and able to make needs known. no IV access, patient should be discharge to SNF last night but blood pressure was high. Berrios in placed attached to drainage bag. no facial grimace noted. Kept patient clean and comfortable in bed, call light with in patient reach, will continue to monitor accordingly.
[2017-03-25 08:00] VITALS: BP 194/87
[2017-03-25] MEDS: DOCUSATE SODIUM 100 MG CAPSULE PO SCH ×2 (08:21→16:32)
[2017-03-25] MEDS: PANTOPRAZOLE 40 MG TABLET.DR PO SCH (08:21)
[2017-03-25] MEDS: METOPROLOL TARTRATE 25 MG TABLET PO SCH (08:21)
[2017-03-25] MEDS: CLOPIDOGREL BISULFATE 75 MG TABLET PO SCH (08:21)
[2017-03-25] MEDS: LISINOPRIL (20MG) 20 MG TABLET PO SCH (08:21)
[2017-03-25 09:00] VITALS: BP 127/66
[2017-03-25] MEDS ORDERED: ACETAMINOPHEN 325 MG TABLET PO PRN (09:00)
[2017-03-25] MEDS: hydrALAZINE HCL IV 20 MG VIAL IV PRN (10:27)
[2017-03-25] MEDS: CEFTRIAXONE 1 G in IV D5W 50 ML IV SCH (15:47)
[2017-03-25 16:00] VITALS: BP 176/88
--- NOTE | 2017-03-25 19:15 | NUR ---
RN OPEN NOTES RECEIVED PATIENT AWAKE IN BED. A/O X3. NO SIGNS OF DISTRESS OR DISCOMFORT. BREATHING EVEN AND UNLABORED. IV ACCESS IN R HAND PATENT AND INTACT, NO SIGNS OF REDNESS OR INFILTRATION. HAS F/C INTACT WITH CLOUDY REDDISH JORDY FLUID NOTED. BED IN LOW LOCKED POSITION WITH SIDE RAILS X2. CALL LIGHT WITHIN REACH. WILL CONTINUE TO MONITOR.
--- NOTE | 2017-03-25 19:29 | NUR ---
ms rn closing notes All needs provided, attended, and anticipated. kept patient clean and comfortable in bed, call light with in patient reach, endorsed to next shift RN to continue care.
[2017-03-25 20:00] VITALS: BP 139/87
[2017-03-25] MEDS: ATORVASTATIN 10 MG TABLET PO SCH (21:20)
--- NOTE | 2017-03-26 07:03 | NUR ---
RN CLOSING NOTES PATIENT AWAKE IN BED. A/O X3. NO SIGNS OF DISTRESS OR DISCOMFORT. BREATHING EVEN AND UNLABORED. IV ACCESS IN R HAND PATENT AND INTACT, NO SIGNS OF REDNESS OR INFILTRATION. HAS F/C INTACT WITH CLOUDY REDDISH JORDY FLUID NOTED. ALL NEEDS MET. NO SIGNIFICANT CHANGES THROUGH THE NIGHT. BED IN LOW LOCKED POSITION WITH SIDE RAILS X2. CALL LIGHT WITHIN REACH. WILL ENDORSE TO AM SHIFT FOR CARLOS MANUEL. .
--- NOTE | 2017-03-26 07:20 | NUR ---
ms rn initial notes Received patient in bed, awake, head of bed elevated, no SOB or distress noted, on room air. Alert and oriented x 3, verbally responsive and able to make needs known. IV intact and patent HL only. No complaint of pain or discomfort noted. Berrios in placed with output of 1200ml per report by hourly shift. Kept patient clean and comfortable in bed, call light with in patient reach, will continue to monitor accordingly.
[2017-03-26 08:00] VITALS: BP 163/93
[2017-03-26] MEDS: DOCUSATE SODIUM 100 MG CAPSULE PO SCH (08:24)
[2017-03-26] MEDS: PANTOPRAZOLE 40 MG TABLET.DR PO SCH (08:24)
[2017-03-26] MEDS: LISINOPRIL (20MG) 20 MG TABLET PO SCH (08:26)
[2017-03-26] MEDS: METOPROLOL TARTRATE 25 MG TABLET PO SCH (08:26)
[2017-03-26] MEDS: CLOPIDOGREL BISULFATE 75 MG TABLET PO SCH (10:18)
[2017-03-26] MEDS ORDERED: AMLO10TA4 PO (13:07)
[2017-03-26] MEDS ORDERED: AMLODIPINE BESYLATE 10 MG TABLET PO SCH (13:30)
[2017-03-26 14:52] VITALS: BP 188/85
[2017-03-26] MEDS: hydrALAZINE HCL IV 20 MG VIAL IV PRN (14:52)
[2017-03-26] MEDS: HYDROCODONE/APAP 5/325MG 1 EACH TABLET PO PRN (15:32)
--- NOTE | 2017-03-26 16:44 | NUR ---
ms corn cooker notes Discharge instructions given to patient and daughter Simona and able to understand instructions. Discharge paper and belonging list. No items missing. Skin assessment and pictures taken and filed in the chart. Refused pneumonia and flu vaccine. Explained the risk and benefits x 3, and still refused. Patient left the hospital in stable condition, no complaint of pain or discomfort noted, nor chest pain accompanied by 2 EMT's and daughter. Vital signs checked and recorded. [facility] and spoke to Birgit and report given. Informed regarding patient skin and BP tend to go up and patient baseline and made aware. MD and charge nurse aware.
== END 2017-03-26 16:41 | DRG 725 ==
LOC: ER 15:32 → MED 21:14
PROVIDERS: ADMIT Internal Medicine; ATTEND Internal Medicine
DX: N40.1 Benign prostatic hyperplasia with lower urinary tract symptoms (principal); N17.0 Acute kidney failure with tubular necrosis; N12 Tubulo-interstitial nephritis, not specified as acute or chronic; N13.8 Other obstructive and reflux uropathy; N13.6 Pyonephrosis; E66.9 Obesity, unspecified; N41.9 Inflammatory disease of prostate, unspecified; E78.5 Hyperlipidemia, unspecified; M81.0 Age-related osteoporosis without current pathological fracture; I10 Essential (primary) hypertension; Z86.73 Personal history of transient ischemic attack (TIA), and cerebral infarction without residual deficits; I87.2 Venous insufficiency (chronic) (peripheral); H40.9 Unspecified glaucoma; Z68.33 Body mass index [BMI] 33.0-33.9, adult; M40.209 Unspecified kyphosis, site unspecified; R33.8 Other retention of urine
CPT/HCPCS: 36415; 71045-TC; 76770-TC; 80048-TC; 80076-TC; 81000-TC; 83605-TC; 83735-TC; 84100-TC; 84484-TC; 85025-TC; 85730-TC; 87040-TC; 87081-TC; 87086-TC; 87186-TC; A4217; A4606; J0360; J0696; J1885; J2270; J3490; J7030; J7060

== ENCOUNTER 2017-03-27 21:27 | Emergency (ER) | payer MEDICARE ==
[~2017-03-27] VITALS: Ht 152.4 cm; Wt 72.6 kg
[~2017-03-27 21:27] MED LIST changes: +AMLO10TA4 PO; +CEPH-570 PO
--- NOTE | 2017-03-27 21:45 | NUR ---
PT [facility] FOR BLOOD IN URINE. PT AOX3 RR EVEN AND UNLABORED. NO SOB NOTED. NAD NOTED. NO NVD AT THIS TIME. PT GOWNED AND PLACED ON MONITOR WAITING FOR MD WILLS. PT NOTED WITH FC WITH HEMATURIA. AT BEDSIDE.
[2017-03-27] MEDS ORDERED: IV NS 0.9% 500 ML BAG IV ONE (22:00)
--- NOTE | 2017-03-27 22:43 | NUR ---
PT REFUSED TO INSERT NEW LEO CATH. RISK AND BENEFITS EXPLAINED X3. DR DUARTE MADE AWARE
[2017-03-27 22:59] LABS: INR 1.03 (0.87-1.13)
[2017-03-27 23:01] LABS: CALCIUM, SERUM 8.3 mg/dL (8.5-10.1); CARBON DIOXIDE 30 mmol/L (21-32); CHLORIDE 105 mmol/L (98-107); CREATININE 1.1 mg/dL (0.6-1.3); GLUCOSE 127 mg/dL (74-106); POTASSIUM 3.1 mmol/L (3.5-5.1); SODIUM SERUM 144 mmol/L (136-145); UREA NITROGEN, BLOOD 16 mg/dL (7-18)
[2017-03-27 23:05] LABS: ALANINE AMINOTRANSFERASE 38 U/L (12-78); ALBUMIN 2.9 g/dL (3.4-5.0); ALKALINE PHOSPHATASE 65 U/L (46-116); ASPARTATE AMINOTRANSFERASE 31 U/L (15-37); BILIRUBIN,DIRECT 0.1 mg/dL (0.0-0.2); BILIRUBIN,TOTAL 0.2 mg/dL (0.2-1.0); TOTAL PROTEIN, SERUM 6.9 g/dL (6.4-8.2)
[2017-03-27 23:07] LABS: BASOPHILS % (AUTO) 0.4 % (0.0-2.0); EOSINOPHILS # (AUTO) 0.1 /CMM (0.0-0.7); EOSINOPHILS % (AUTO) 0.8 % (0.0-6.0); HEMATOCRIT 34 % (39-51); HEMOGLOBIN 11.5 g/dL (13.5-17.5); LYMPHOCYTES # (AUTO) 0.5 /CMM (0.8-4.8); LYMPHOCYTES % (AUTO) 7.7 % (20.0-44.0); MEAN CORPUSCULAR HEMOGLOBIN 29 PG (26.0-33.0); MEAN CORPUSCULAR HGB CONC 34 g/dl (31.0-36.0); MEAN CORPUSCULAR VOLUME 87 fL (80-96); MONOCYTES # (AUTO) 0.5 /CMM (0.1-1.30); MONOCYTES % (AUTO) 8.6 % (2.0-12.0); NEUTROPHILS # (AUTO) 5.2 /CMM (1.8-8.9); NEUTROPHILS % (AUTO) 82.5 % (43.0-81.0); PLATELET COUNT (AUTO) 415 /CMM (150-450); RDW COEFFICIENT OF VARIATION 14.1 (11.5-15.0); RED BLOOD CELL COUNT(AUTO) 3.92 MIL/uL (4.5-6.0); WHITE BLOOD COUNT (AUTO) 6.3 K/uL (4.3-11.0)
--- NOTE | 2017-03-27 23:08 | NUR ---
DR. DUARTE AT BEDSIDE FOR EVAL.
[2017-03-27 23:09] LABS: TROPONIN I 0.188 ng/mL (0.00-0.056)
[2017-03-27] MEDS ORDERED: LIDOCAINE 2% JEL UROJET 10 ML MM ONE ×2 (23:10→23:30)
[2017-03-27] MEDS ORDERED: MORPHINE SULFATE INJ 4 MG/ML DISP.SYRIN ONE (23:10)
[2017-03-27] MEDS ORDERED: ONDANSETRON HCL/PF 4 MG/2 ML VIAL ONE (23:10)
[2017-03-27] MEDS ORDERED: MORPHINE SULFATE INJ 2 MG/ML DISP.SYRIN IV ONE (23:30)
[2017-03-27] MEDS ORDERED: ONDANSETRON HCL/PF 4 MG/2 ML VIAL IV ONE (23:30)
--- NOTE | 2017-03-27 23:37 | NUR ---
PLACED 20F COUDE PER MD ORDER. NO URINE OUTPUT AT THIS TIME. INFORMED DR. DUARTE
--- NOTE | 2017-03-27 23:50 | NUR ---
NOTED HEMATURIA IN LEO BAG, INFORMED DR. DUARTE, URINE COLLECTED. SENT TO LAB
[2017-03-28 00:04] LABS: APPEARANCE,URINE CLOUDY (CLEAR); BILIRUBIN,URINE NEGATIVE (NEGATIVE); BLOOD, URINE 3+ Ery/uL (NEGATIVE); COLOR,URINE RED (YELLOW); KETONES,URINE NEGATIVE (NEGATIVE); LEUKOCYTE ESTERASE ,URINE NEGATIVE (NEGATIVE); NITRITE, URINE NEGATIVE (NEGATIVE); PH,URINE 6.5 (5.0-8.0); PROTEIN,URINE 2+ mg/dl (NEGATIVE); UGLUCOSE NEGATIVE (NEGATIVE); UROBILINOGEN,URINE 0.2 EU/dL (0.2)
[2017-03-28 00:13] LABS: BACTERIA,URINE Few /HPF (None Seen); RBC,URINE TOO NUMEROUS TO COUN /HPF (0-2); SQUAMOUS EPITHELIAL CELL,UR None Seen /HPF (None Seen)
[2017-03-28] MEDS ORDERED: LIDOCAINE 2% JEL UROJET 10 ML MM ONE ×2 (00:16→00:30)
[2017-03-28] MEDS ORDERED: MORPHINE SULFATE INJ 4 MG/ML DISP.SYRIN ONE (00:21)
[2017-03-28] MEDS ORDERED: MORPHINE SULFATE INJ 2 MG/ML DISP.SYRIN IV ONE (00:30)
--- NOTE | 2017-03-28 00:51 | NUR ---
24FR COUDE PLACED PER MD ORDER, HERMATURIA NOTED. 1200 CC OUTPUT
--- NOTE | 2017-03-28 01:06 | NUR ---
REPORT GIVEN BOSTON SHIPMAN FOR [facility] BED [id number] [phone]
[2017-03-28] MEDS ORDERED: POTASSIUM CHLORIDE 20 MEQ TAB.PRT.SR PO ONE ×3 (01:50→02:00)
--- NOTE | 2017-03-28 02:22 | NUR ---
[facility] AMBULNZ FOLLOW-UP ON TFR REF#[id number]. ETA 5-10MINS.
[2017-03-28 02:40] VITALS: BP 133/56
--- NOTE | 2017-03-28 02:42 | NUR ---
REPORT GIVEN TO EMT GURMEET FOR CARLOS MANUEL. VSS INTACT. IV INTACT AND PATENT. NO S/S INFECTION OR INFILTRATION NOTED. LEO INTACT DRAINING WELL. PT AWARE OF BEING TRANSPORTED TO SWAN AND WITH ALL PERSONAL BELONGINGS. PT TO BE TRANSPORTED VIA GURNEY. PER GURMEET TOOK OVER CARE
== END 2017-03-28 02:47 ==
LOC: ER 21:29
DX: R31.9 Hematuria, unspecified (principal); I21.4 Non-ST elevation (NSTEMI) myocardial infarction; E87.6 Hypokalemia; R33.9 Retention of urine, unspecified; I10 Essential (primary) hypertension; H40.9 Unspecified glaucoma
CPT/HCPCS: 36415; 80048-TC; 80076-TC; 81000-TC; 84484-TC; 85025-TC; 85730-TC; 87086-TC; A4606; J2270; J2405; J3490; J7040; Z7610

== ENCOUNTER 2017-04-22 11:52 | Inpatient (IN) | payer MEDICARE ==
[~2017-04-22] VITALS: Ht 162.6 cm; Wt 68.0 kg
[2017-04-22 12:14] LABS: BASOPHILS % (AUTO) 0.1 % (0.0-2.0); EOSINOPHILS % (AUTO) 0.5 % (0.0-6.0); HEMATOCRIT 32 % (39-51); HEMOGLOBIN 10.5 g/dL (13.5-17.5); LYMPHOCYTES # (AUTO) 0.4 /CMM (0.8-4.8); LYMPHOCYTES % (AUTO) 4.6 % (20.0-44.0); MEAN CORPUSCULAR HEMOGLOBIN 29 PG (26.0-33.0); MEAN CORPUSCULAR HGB CONC 33 g/dl (31.0-36.0); MEAN CORPUSCULAR VOLUME 88 fL (80-96); MONOCYTES # (AUTO) 0.2 /CMM (0.1-1.30); MONOCYTES % (AUTO) 2.3 % (2.0-12.0); NEUTROPHILS # (AUTO) 7.2 /CMM (1.8-8.9); NEUTROPHILS % (AUTO) 92.5 % (43.0-81.0); PLATELET COUNT (AUTO) 317 /CMM (150-450); RDW COEFFICIENT OF VARIATION 15.7 (11.5-15.0); RED BLOOD CELL COUNT(AUTO) 3.63 MIL/uL (4.5-6.0); WHITE BLOOD COUNT (AUTO) 7.8 K/uL (4.3-11.0)
[2017-04-22 12:24] LABS: CALCIUM, SERUM 8.4 mg/dL (8.5-10.1); CARBON DIOXIDE 34 mmol/L (21-32); CHLORIDE 107 mmol/L (98-107); CREATININE 0.7 mg/dL (0.6-1.3); GLUCOSE 186 mg/dL (74-106); POTASSIUM 4.4 mmol/L (3.5-5.1); SODIUM SERUM 142 mmol/L (136-145); UREA NITROGEN, BLOOD 16 mg/dL (7-18)
[2017-04-22 12:30] LABS: ALANINE AMINOTRANSFERASE 33 U/L (12-78); ALBUMIN 2.4 g/dL (3.4-5.0); ALKALINE PHOSPHATASE 72 U/L (46-116); ASPARTATE AMINOTRANSFERASE 26 U/L (15-37); BILIRUBIN,DIRECT 0.1 mg/dL (0.0-0.2); BILIRUBIN,TOTAL 0.3 mg/dL (0.2-1.0); TOTAL PROTEIN, SERUM 6.1 g/dL (6.4-8.2)
[2017-04-22] MEDS ORDERED: IV NS 0.9% 500 ML BAG IV ONE (12:30)
[2017-04-22 12:32] LABS: TROPONIN I 0.019 ng/mL (0.00-0.056)
--- NOTE | 2017-04-22 12:33 | NUR ---
EDMAR FROM [facility] DT BLOOD IN THE URINE NOTICED TODAY. PER REPORT PATIENT FC WAN INSERTED YESRTERAY DT URINARY RETENTION. PATIENT DENIES ANY PAIN, SKIN IS WARM TO TOUCH AND NON DIAPHORETIC. PATIENT IS AFEBRILE. VSS.
[2017-04-22 12:50] LABS: APPEARANCE,URINE Slightly Cloudy (CLEAR); BILIRUBIN,URINE Negative (NEGATIVE); BLOOD, URINE Large Ery/uL (NEGATIVE); COLOR,URINE Yellow (YELLOW); KETONES,URINE Negative (NEGATIVE); LEUKOCYTE ESTERASE ,URINE Moderate (NEGATIVE); NITRITE, URINE Negative (NEGATIVE); PH,URINE 7.5 (5.0-8.0); PROTEIN,URINE 100 mg/dl (NEGATIVE); UGLUCOSE Negative (NEGATIVE); UROBILINOGEN,URINE 0.2 EU/dL (0.2)
[2017-04-22] MEDS ORDERED: CEFTRIAXONE 1GM BAG (ER ONLY) 1 GM/50 ML PIGGYBACK IV ONE (13:00)
[2017-04-22 13:01] LABS: BACTERIA,URINE Rare /HPF (None Seen); RBC,URINE 21-50 /HPF (0-2); SQUAMOUS EPITHELIAL CELL,UR Few /HPF (None Seen); WBC,URINE 51-80 /HPF (0-3)
[2017-04-22] MEDS ORDERED: CEFTRIAXONE 1GM BAG (ER ONLY) 50 ML IV ONE (13:02)
[2017-04-22] MEDS ORDERED: VANCOMYCIN 1 GM in IV D5W 250 ML IV ONE (13:30)
--- NOTE | 2017-04-22 13:43 | NUR ---
PATIENT ASSIGNED TO MS 207-1
--- NOTE | 2017-04-22 14:12 | NUR ---
PATIENT TRANSOPORTED TO MS. VSS
[2017-04-22] MEDS ORDERED: HEPARIN SODIUM, PORCINE 5000 UNITS/1 ML VIAL ONE (14:23)
--- NOTE | 2017-04-22 14:23 | NUR ---
Sin julian in [facility] - 04/22/17 at 1424 by JUAN HEPARIN 5000 UNITS BOLUS GIVEN ORDERED
--- NOTE | 2017-04-22 14:55 | NUR ---
PATIENT ARRIVED TO UNIT AND PLACED IN ROOM 207-2
[2017-04-22] MEDS ORDERED: DOCU-141 PO (15:03)
[2017-04-22] MEDS ORDERED: FERR325T24 PO (15:03)
[2017-04-22] MEDS ORDERED: OLAN2.5T3 PO (15:03)
[2017-04-22] MEDS ORDERED: ALBU2.5V13 IH (15:03)
[2017-04-22] MEDS ORDERED: TAMS0.4C34 PO (15:03)
[2017-04-22] MEDS ORDERED: FINA5TAB11 PO (15:03)
[2017-04-22] MEDS ORDERED: BISA10SU8 RC (15:03)
[2017-04-22] MEDS ORDERED: GABA-532 PO (15:03)
[2017-04-22] MEDS ORDERED: ZINC220T PO (15:03)
[2017-04-22] MEDS ORDERED: ATOR40TA PO (15:03)
[2017-04-22] MEDS ORDERED: NA P133E RC (15:03)
[2017-04-22] MEDS ORDERED: PRED20TA PO (15:03)
[2017-04-22] MEDS ORDERED: MIRT15TA PO (15:03)
[2017-04-22] MEDS ORDERED: ACETAMINOPHEN 325 MG TABLET PO PRN (15:30)
[2017-04-22] MEDS ORDERED: MAG HYDROX/AL HYDROX/SIMETH 30 ML UDC PO PRN (15:30)
[2017-04-22] MEDS ORDERED: ZOLPIDEM TARTRATE 5 MG TABLET PO PRN (15:30)
[2017-04-22] MEDS ORDERED: MAGNESIUM HYDROXIDE 30 ML UDC PO PRN (15:30)
[2017-04-22] MEDS ORDERED: ONDANSETRON HCL/PF 4 MG/2 ML VIAL IVP PRN (15:30)
[2017-04-22] MEDS ORDERED: Z GUARD REMEDY 2 OZ OINT TP PRN (15:30)
[2017-04-22 16:00] VITALS: BP 135/66
--- NOTE | 2017-04-22 16:00 | NUR ---
FLOATLIGHT POWDER MIXER NOTES PATIENT ARRIVED TO UNIT VIA A STRETCHER DIRECTLY FROM THE EMERGENCY DEPARTMENT. PATIENT CLEANED UP WITH NEW DIAPER AND NEW GOWN. ALL ADMISSION DOCUMENTATION COMPLETED WITH PATIENT AND HIS DAUGHTER, OLEGARIO. PICTURES WERE TAKEN AND PLACED IN THE CHART. BED IN LOW POSITION, LOCKED AND TWO SIDE RAILS ARE UP. CALL LIGHT WITHIN REACH FOR SAFETY. WILL CONTINUE TO MONITOR AND ASSESS PATIENT THROUGHOUT MY SHIFT
[2017-04-22 16:11] LABS: IRON, SERUM 25 ug/dl (50-175); TOTAL IRON BINDING CAPACITY 179 ug/dl (250-450)
[2017-04-22] MEDS: LEVOFLOXACIN 750 MG /D5W 150ML 750 MG in PREMIX 1 EA IV SCH (19:03)
--- NOTE | 2017-04-22 19:25 | NUR ---
MS/RN OPENING NOTES PT RECEIVED ASLEEP, EASILY AROUSABLE TO NAME. A/OX2. ON 2L O2 VIA NC, BREATHING EVEN AND UNLABORED. DENIES SOB OR PAIN. APPEARS COMFORTABLE. LEO IN PLACE AND DRAINING TO GRAVITY. IV TO RIGHT AC PATENT AND INTACT. BED IN LOW/LOCKED POSITION WITH CALL LIGHT IN REACH. SIDE RAILS UPX3 WITH BED ALARM ON FOR SAFETY. WILL CONTINUE TO MONITOR
[2017-04-22 20:00] VITALS: BP 118/59
--- NOTE | 2017-04-23 06:35 | NUR ---
MS/RN CLOSING NOTES PT RESTING IN BED. A/OX2, WITH EPISODES OF CONFUSION/FORGETFULNESS. REORIENTED PRN. ON 2L O2 VIA NC, BREATHING EVEN AND UNLABORED. DENIES SOB OR PAIN. IV TO RAC PATENT AND INTACT. TURNED/REPOSITIONED Q2H, MEDIAL BACK AND HEELS OFFLOADED AT ALL TIMES. WOUND CONSULT ORDERED. LEO IN PLACE AND DRAINING TO GRAVITY. BED IN LOW/LOCKED POSITION WITH CALL LIGHT IN REACH. SIDE RAILS UPX3 WITH BED ALARM ON FOR SAFETY. MADE PT COMFORTABLE POSSIBLE, ALL NEEDS MET. WILL ENDORSE TO DAY SHIFT RN CARLOS MANUEL.
[2017-04-23 06:48] LABS: EOSINOPHILS # (AUTO) 0.1 /CMM (0.0-0.7); EOSINOPHILS % (AUTO) 0.9 % (0.0-6.0); HEMATOCRIT 30 % (39-51); HEMOGLOBIN 9.9 g/dL (13.5-17.5); LYMPHOCYTES # (AUTO) 0.7 /CMM (0.8-4.8); LYMPHOCYTES % (AUTO) 9.4 % (20.0-44.0); MEAN CORPUSCULAR HEMOGLOBIN 29 PG (26.0-33.0); MEAN CORPUSCULAR HGB CONC 33 g/dl (31.0-36.0); MEAN CORPUSCULAR VOLUME 89 fL (80-96); MONOCYTES # (AUTO) 0.4 /CMM (0.1-1.30); MONOCYTES % (AUTO) 5.8 % (2.0-12.0); NEUTROPHILS # (AUTO) 5.9 /CMM (1.8-8.9); NEUTROPHILS % (AUTO) 83.9 % (43.0-81.0); PLATELET COUNT (AUTO) 289 /CMM (150-450); RDW COEFFICIENT OF VARIATION 16.7 (11.5-15.0); RED BLOOD CELL COUNT(AUTO) 3.41 MIL/uL (4.5-6.0)
[2017-04-23 07:02] LABS: INR 1.03 (0.87-1.13)
[2017-04-23 07:08] LABS: ALANINE AMINOTRANSFERASE 46 U/L (12-78); ALBUMIN 2.2 g/dL (3.4-5.0); ALKALINE PHOSPHATASE 65 U/L (46-116); ASPARTATE AMINOTRANSFERASE 28 U/L (15-37); BILIRUBIN,TOTAL 0.3 mg/dL (0.2-1.0); CALCIUM, SERUM 8.1 mg/dL (8.5-10.1); CARBON DIOXIDE 31 mmol/L (21-32); CHLORIDE 112 mmol/L (98-107); CREATININE 0.7 mg/dL (0.6-1.3); GLUCOSE 81 mg/dL (74-106); MAGNESIUM 1.8 mg/dL (1.8-2.4); PHOSPHORUS 3.4 mg/dL (2.5-4.9); POTASSIUM 4.3 mmol/L (3.5-5.1); SODIUM SERUM 147 mmol/L (136-145); TOTAL PROTEIN, SERUM 5.7 g/dL (6.4-8.2); UREA NITROGEN, BLOOD 18 mg/dL (7-18)
[2017-04-23 07:09] LABS: CHOLESTEROL 112 mg/dL (<200); CREATINE KINASE MB 1.4 ng/mL (0-3.6); HDL CHOLESTEROL 44 mg/dL (40-60); LDL 60 mg/dL (0-99); THYROID STIMULATING HORMONE 1.918 uIU/mL (0.358-3.74); TRIGLYCERIDES 76 mg/dL (30-150)
--- NOTE | 2017-04-23 07:28 | NUR ---
MS RN OPENING NOTES PATIENT RECEIVED ASLEEP IN BED, AWAKENS EASILY. A/O X 2-3, VERBALLY RESPONSIVE IN ENGLISH, DENIES PAIN OR DISCOMFORTS AT THIS TIME. ON SUPPLEMENTAL 02 VIA N/C AT 2LPM, BREATHING EVEN AND UNLABORED, NO SOB NOTED. IV ACCESS ON RAC G#20 INTACT AND PATENT. LEO CATH IN PLACE AND ACTIVELY DRAINING CLEAR LIGHT YELLOW URINE TO BEDSIDE URINARY COLLECTING BAG, NO HEMATURIA NOTED. BED LOCKED AND IN LOWEST POSITION WITH SIDE-RAILS UP X3. BED ALARM ON AND CALL LIGHT IN REACH. WILL CONTINUE TO MONITOR.
[2017-04-23 08:00] VITALS: BP 131/65
[2017-04-23] MEDS: ENOXAPARIN SODIUM 30 MG/0.3 ML DISP.SYRIN SQ SCH (08:07)
[2017-04-23] MEDS: HYDROCODONE/APAP 5/325MG 1 EACH TABLET PO PRN (08:49)
--- NOTE | 2017-04-23 09:46 | NUR ---
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 LOW AIRLOSS BED PLACED (ISOFLEX). ALL SKIN PROTECTION AND WOUND RECOMMENDATIONS DISCUSSED WITH NURSING STAFF. RECOMMEND SURGICAL CONSULT. WILL SEE PRN. THOMAS IN AGREEMENT WITH PLAN OF CARE. Addendum: 04/23/17 at 0949 by MARISELA JOHNSON WND[facility] Amended: Links added.
[2017-04-23] MEDS ORDERED: HYDROGEL DRESSING 90 GM TUBE TP PRN (10:00)
[2017-04-23] MEDS ORDERED: HYDROGEL DRESSING 90 GM TUBE TP SCH (10:00)
[2017-04-23] MEDS: BACITRACIN/POLYMYXIN B 15 GM TUBE TP SCH (11:28)
[2017-04-23] MEDS: CLOTRIMAZOLE 1% 15 GM TUBE TP SCH ×2 (11:28→17:45)
[2017-04-23] MEDS: CADEXOMER IODINE 40 GM TUBE TP SCH (15:54)
[2017-04-23 16:00] VITALS: BP 170/80
[2017-04-23] MEDS: LEVOFLOXACIN 750 MG /D5W 150ML 750 MG in PREMIX 1 EA IV SCH (17:45)
--- NOTE | 2017-04-23 18:29 | NUR ---
MS RN CLOSING NOTES PATIENT AWAKE IN BED WITH DAUGHTER AT BEDSIDE AT THIS TIME. A/O X 2-3, VERBALLY RESPONSIVE WITH PERIODS OF CONFUSION AND FORGETFULNESS DURING THE DAY, REALITY RE-ORIENTATION DONE. ON SUPPLEMENTAL 02 VIA N/C AT 2LPM, BREATHING EVEN WITH NO SOB NOTED. IV ACCESS ON RIGHT AC G#20 INTACT AND PATENT. LEO CATH IN PLACE AND ACTIVELY DRAINING CLEAR LIGHT YELLOW URINE TO BEDSIDE URINARY COLLECTING BAG, NO HEMATURIA NOTED. LEO CARE DONE. BED LOCKED AND IN LOWEST POSITION WITH SIDE-RAILS UP X3. BED ALARM ON AND CALL LIGHT IN REACH. ALL NEEDS AND CARE PROVIDED WELL. WILL ENDORSED TO WEB SIZER NURSE FOR CARLOS MANUEL.
--- NOTE | 2017-04-23 19:45 | NUR ---
MS RN NOTE: PATIENT RESTING IN BED, NO ACUTE DISTRESS NOTED, FAMILY AT BEDSIDE. BREATHING EVEN AND UNLABORED, NO SOB NOTED. LEO CATHETER IN PLACE, EMPTY AT THIS TIME. IV TO RAC IN PLACE. BED LOCKED AND IN LOWEST POSITION, CALL LIGHT IN REACH. WILL CONTINUE TO MONITOR.
[2017-04-23 20:00] VITALS: BP 121/58
--- NOTE | 2017-04-24 03:00 | NUR ---
MS RN NOTE: PATIENT SLEEPING IN BED, NO ACUTE DISTRESS NOTED. BREATHING EVEN AND UNLABORED, NO SOB NOTED. BED LOCKED AND IN LOWEST POSITION, CALL LIGHT IN REACH WILL CONTINUE TO MONITOR
--- NOTE | 2017-04-24 06:05 | NUR ---
MS RN NOTE: PATIENT RESTING IN BED, NO ACUTE DISTRESS NOTED. BREATHING EVEN AND UNLABORED, NO SOB NOTED. LEO CATHETER IN PLACE. IV TO RAC IN PLACE. BED LOCKED AND IN LOWEST POSITION, CALL LIGHT IN REACH. WILL ENDORSE TO DAY NURSE TO CONTINUE WITH PLAN OF CARE.
--- NOTE | 2017-04-24 07:30 | NUR ---
MS RN OPENING NOTES PATIENT RECEIVED AWAKE IN BED IN NO ACUTE SIGNS OF DISTRESS. A/O X 2-3, VERBALLY RESPONSIVE, DENIES PAIN OR DISCOMFORTS AT THIS TIME. ON 02 VIA N/C AT 2LPM, BREATHING EVEN AND UNLABORED. IV ACCESS ON RIGHT AC G#20 INTACT AND PATENT. LEO CATH IN PLACE AND ACTIVELY DRAINING CLEAR LIGHT YELLOW URINE TO BEDSIDE URINARY COLLECTING BAG, NO HEMATURIA NOTED. BED LOCKED AND IN LOWEST POSITION WITH SIDE-RAILS UP X3. BED ALARM ON AND CALL LIGHT IN REACH. WILL CONTINUE TO MONITOR.
[2017-04-24 08:00] VITALS: BP 143/74
[2017-04-24] MEDS: ENOXAPARIN SODIUM 30 MG/0.3 ML DISP.SYRIN SQ SCH (08:49)
[2017-04-24] MEDS: CLOTRIMAZOLE 1% 15 GM TUBE TP SCH ×2 (08:50→17:16)
[2017-04-24] MEDS: CADEXOMER IODINE 40 GM TUBE TP SCH (08:50)
[2017-04-24] MEDS: BACITRACIN/POLYMYXIN B 15 GM TUBE TP SCH (08:51)
--- NOTE | 2017-04-24 11:36 | NUR ---
RN NOTES PT CONFUSED AND TRIED TO CLIMBED OUT OF BED X3, RE-ORIENTED AND MORAL SUPPORT GIVEN. PT MOVED FROM ROOM 207-2 TO RM 202 WHICH IS IN FRONT OF THE NURSES STATION FOR CLOSE MONITORING.
--- NOTE | 2017-04-24 12:17 | NUR ---
RN NOTES PATIENT FOR WOUND DEBRIDEMENT OF UPPER MIDBACK WOUND, EXPLAINED PROCEDURE TO PT AND VERBALIZED UNDERSTANDING. CONSENT SIGNED.
--- NOTE | 2017-04-24 15:43 | NUR ---
RN NOTES PATIENT NOTED WITH DISLODGED IV ACCESS ON RAC, NO ACTIVE BLEEDING NOTED. INSERTED NEW IV LINE ON RIGHT FA G#22. WILL CONTINUE TO MONITOR.
[2017-04-24 16:00] VITALS: BP 158/83
[2017-04-24] MEDS: LEVOFLOXACIN 750 MG /D5W 150ML 750 MG in PREMIX 1 EA IV SCH (17:16)
--- NOTE | 2017-04-24 18:32 | NUR ---
MS RN CLOSING NOTES PATIENT RESTING IN BED AT MODERATE HIGH BACKREST WITH DAUGHTER AT BEDSIDE. A/O X 2-3, VERBALLY RESPONSIVE AND CONFUSED AT TIMES, RE-ORIENT AND MORAL SUPPORT GIVEN. ON 02 VIA N/C @ 2LPM, BREATHING EVEN WITH NO SOB NOTED. IV ACCESS ON RIGHT FA G#22 INTACT AND PATENT, EASILY FLUSH WITH NS. LEO CATH IN PLACE AND ACTIVELY DRAINING CLEAR LIGHT YELLOW URINE TO BEDSIDE URINARY BAG, NO HEMATURIA NOTED, LEO CARE DONE. HOB KEPT ELEVATED. BED LOCKED AND IN LOWEST POSITION WITH SIDE-RAILS UP X3. BED ALARM ON AND CALL LIGHT IN REACH. ALL NEEDS AND CARE PROVIDED WELL. WILL ENDORSED TO LANDSCAPE ACCOUNT MANAGER NURSE FOR CARLOS MANUEL.
[2017-04-24 20:00] VITALS: BP 155/90
--- NOTE | 2017-04-24 20:09 | NUR ---
RECEIVED PATIENT IN ROOM AWAKE AND NAME ALERT IN BED IN NO ACUTE SIGNS OF DISTRESS. A/O X 2-3, VERBALLY RESPONSIVE, DENIES PAIN OR DISCOMFORTS AT THIS TIME. ON 02 VIA N/C AT 2LPM, BREATHING EVEN AND UNLABORED. IV ACCESS ON RIGHT AC G#20 INTACT AND PATENT. LEO CATH IN PLACE AND ACTIVELY DRAINING CLEAR LIGHT YELLOW URINE TO BEDSIDE URINARY COLLECTING BAG, NO HEMATURIA NOTED. BED LOCKED AND IN LOWEST POSITION WITH SIDE-RAILS UP X3. BED ALARM ON AND CALL LIGHT IN REACH. WILL CONTINUE TO MONITOR PATIENT FOR SAFETY AND FALL.
[2017-04-24] MEDS: HYDROCODONE/APAP 5/325MG 1 EACH TABLET PO PRN (23:04)
[2017-04-24] MEDS: LORAZEPAM INJ 2 MG/ML VIAL IV PRN (23:58)
--- NOTE | 2017-04-25 00:25 | NUR ---
PATIENT WAS VERY AGITATED TRYING TO GET OUT FROM HIS BED CALLING HIS SENTHIL WANTS TO JUMP FROM BED PULLING THE LEO- CATH AND IV LINES PAGED THE DR. MOUTHPIECE MAKER DR. JUNI ESPINOZA AND RECEIVED THE ORDER FOR ATIVAN I MG IV PUSH PRN AND Q 6 HR. ORDER WAS CARRIED OUT AND ADMINISTERED PATIENT 1 MG ATIVAN IV PUSH, VITAL SIGN STABLE NO RESPIRATORY DISTRESS NOTED WILL CONTINUES TO MONITOR THE PATIENT EVERY 15 MINS FOR SAFETY AND FALL.
--- NOTE | 2017-04-25 05:27 | NUR ---
END OF THE SHIFT NOTE- PATIENT RECEIVED 1 MG ATIVAN IV PUSH PRESCRIBED FOR SEVER AGITATIONS, TRYING TO GET OUT FROM BED VERY CONFUSED, PULLING IV LINE AND FOLY-CATH NO RESPIRATORY DISTRESS NOTED VITAL SIGN STABLE, WILL ENDORSE TO THE MORNING NURSE FOR CONTINUITY OF CARE.
--- NOTE | 2017-04-25 07:30 | NUR ---
MS/RN Patient received Patient received from retail shift supervisor. Sleeping at this time, appears in no distress. Side rails X3 in upright position, brakes locked, call light within reach. Will continue to monitor and ensure safety.
[2017-04-25 08:00] VITALS: BP 131/65
[2017-04-25] MEDS: CADEXOMER IODINE 40 GM TUBE TP SCH (08:27)
[2017-04-25] MEDS: MULTIVITAMINS,THERAGRAN 1 UDTAB TABLET PO SCH (08:27)
[2017-04-25] MEDS: PROSOURCE / PROSTAT (PYXIS) 30 ML UDC GT SCH (08:27)
[2017-04-25] MEDS: BACITRACIN/POLYMYXIN B 15 GM TUBE TP SCH (08:28)
[2017-04-25] MEDS: CLOTRIMAZOLE 1% 15 GM TUBE TP SCH ×2 (08:28→17:00)
[2017-04-25] MEDS: ENOXAPARIN SODIUM 30 MG/0.3 ML DISP.SYRIN SQ SCH (08:32)
--- NOTE | 2017-04-25 09:36 | NUR ---
MS/RN Medications Morning medications administered as ordered.
[2017-04-25] MEDS: LORAZEPAM INJ 2 MG/ML VIAL IV PRN ×2 (10:41→20:14)
--- NOTE | 2017-04-25 10:45 | NUR ---
MS/RN Ativan Ativan given 1mg administered as patient becoming increasingly confused and agitated. Will monitor effectiveness.
--- NOTE | 2017-04-25 12:27 | NUR ---
MS/RN S/B Dr Ellsworth Seen by Dr Ellsworth - labs ordered for tomorrow.
--- NOTE | 2017-04-25 15:52 | NUR ---
MS/RN S/B Dr Tapia Seen by Dr Tapia - bedside debridement of midback wound at bedside.
[2017-04-25 16:06] VITALS: BP 100/62
[2017-04-25] MEDS ORDERED: LEVOFLOXACIN (750 MG) 750 MG TABLET PO SCH (18:00)
[2017-04-25] MEDS: CEFTRIAXONE 1 G in IV D5W 50 ML IV SCH (18:22)
--- NOTE | 2017-04-25 18:30 | NUR ---
MS/RN End note Daughter at bedside and updated as to plan of care. No oozing noted through dressing on mid back since debridement. Patient has been educated to be lying on side and to turn and reposition every 2-3 hours. All needs attended, will endorse to operation shift supervisor.
--- NOTE | 2017-04-25 19:00 | NUR ---
MS RN NOTE: PATIENT RESTING IN BED, A/OX 1-2. STABLE, NO ACUTE DISTRESS NOTED. BREATHING EVEN AND UNLABORED, NO SOB NOTED. BED LOCKED AND IN LOWEST POSITION, CALL LIGHT IN REACH. WILL CONTINUE TO MONITOR.
[2017-04-25 20:00] VITALS: BP 146/72
[2017-04-25 20:17] VITALS: BP 146/72
--- NOTE | 2017-04-25 21:14 | NUR ---
MS RN NOTES PT REMAIN CALM NOW VS STABLE BP 122/67 R 20 T 98.5 P 89 PAIN 0-10
[2017-04-26] MEDS: LORAZEPAM INJ 2 MG/ML VIAL IV PRN ×3 (02:45→17:43)
--- NOTE | 2017-04-26 02:45 | NUR ---
MS RN NOTES PT HAVING ANXIETY, AGITATION M/B INCREASED SCREAMING, TRYING TO GET OUT OF BED OF THE BED, PT TRYING REMOVING F/C. NON PHARMACOLOGICAL INTERVENTIONS INEFFECTIVE WILL ADMINISTER ATIVAN 1MG IV VS STABLE
--- NOTE | 2017-04-26 03:15 | NUR ---
MS [place] NOTES PT ASLEEP AND EASILY AWAKEN, NO MORE CONTINUOS SHOUTING PT DOESN'T GO OUT OF THE BED, VS STABLE BP 129/67 R 20 T 97.8 P 85 02 SAT 95% R.A Addendum: 04/26/17 at 0420 by HERMELINDO MEADOWS RN MEDICATION EFFECTIVE
--- NOTE | 2017-04-26 06:27 | NUR ---
MS RN CLOSING NOTES PT COMFORTABLY ASLEEP AND EASILY AWAKEN, TOLERATING ROOM AIR 02 SAT 94% IN STABLE CONDITION. RESPIRATION EVEN AND UNLABORED. KEPT CLEAN AND DRY AND COMFORTABLE, ALL NURSING CARE RENDERED. NEEDS ATTENDED AND ANTICIPATED, FREQUENT VISUAL CHECK DONE FOR SAFETY EVERY 2 HOURS. TX ORDERED, GOOD SKIN CARE PROVIDED. REPOSITION Q2H. ON LOW BED AT ALL TIMES TO ENSURE SAFETY. SAFE HAZARD FREE ENVIRONMENT PROVIDED. CALL LIGHT WITHIN EASY TO REACH. WILL ENDORSE NEXT SHIFT CONTINUITY OF CARE
[2017-04-26 06:56] LABS: CALCIUM, SERUM 8.1 mg/dL (8.5-10.1); CARBON DIOXIDE 32 mmol/L (21-32); CHLORIDE 106 mmol/L (98-107); CREATININE 0.9 mg/dL (0.6-1.3); GLUCOSE 113 mg/dL (74-106); PHOSPHORUS 3.4 mg/dL (2.5-4.9); POTASSIUM 4.1 mmol/L (3.5-5.1); SODIUM SERUM 144 mmol/L (136-145); UREA NITROGEN, BLOOD 13 mg/dL (7-18)
[2017-04-26 07:24] LABS: EOSINOPHILS # (AUTO) 0.2 /CMM (0.0-0.7); EOSINOPHILS % (AUTO) 2.3 % (0.0-6.0); HEMATOCRIT 33 % (39-51); HEMOGLOBIN 10.8 g/dL (13.5-17.5); LYMPHOCYTES # (AUTO) 0.7 /CMM (0.8-4.8); LYMPHOCYTES % (AUTO) 10.3 % (20.0-44.0); MEAN CORPUSCULAR HEMOGLOBIN 29 PG (26.0-33.0); MEAN CORPUSCULAR HGB CONC 33 g/dl (31.0-36.0); MEAN CORPUSCULAR VOLUME 88 fL (80-96); MONOCYTES # (AUTO) 0.5 /CMM (0.1-1.30); MONOCYTES % (AUTO) 6.9 % (2.0-12.0); NEUTROPHILS # (AUTO) 5.4 /CMM (1.8-8.9); NEUTROPHILS % (AUTO) 80.5 % (43.0-81.0); PLATELET COUNT (AUTO) 288 /CMM (150-450); RDW COEFFICIENT OF VARIATION 16.2 (11.5-15.0); RED BLOOD CELL COUNT(AUTO) 3.77 MIL/uL (4.5-6.0); WHITE BLOOD COUNT (AUTO) 6.7 K/uL (4.3-11.0)
--- NOTE | 2017-04-26 07:58 | NUR ---
RN OPEN NOTES RECEIVED REPORT FROM IMPROVEMENT AUDITOR NURSE. PATIENT IS IN BED, AWAKE, CONFUSED. NO SIGNS AND SYMPTOMS OF DISTRESS. EASILY. BED IN LOW POSITION, LOCKED AND TWO SIDE RAILS FOR SAFETY. CALL LIGHT WITHIN REACH FOR SAFETY. WILL CONTINUE TO ASSESS AND MONITOR PATIENT
[2017-04-26 08:00] VITALS: BP 136/80
[2017-04-26] MEDS: MULTIVITAMINS,THERAGRAN 1 UDTAB TABLET PO SCH (08:53)
[2017-04-26] MEDS: ENOXAPARIN SODIUM 30 MG/0.3 ML DISP.SYRIN SQ SCH (08:53)
[2017-04-26] MEDS: PROSOURCE / PROSTAT (PYXIS) 30 ML UDC GT SCH (08:53)
[2017-04-26] MEDS: BACITRACIN/POLYMYXIN B 15 GM TUBE TP SCH (08:54)
[2017-04-26] MEDS: CLOTRIMAZOLE 1% 15 GM TUBE TP SCH ×2 (08:54→16:25)
[2017-04-26] MEDS: CADEXOMER IODINE 40 GM TUBE TP SCH (08:54)
[2017-04-26] MEDS: HYDROCODONE/APAP 5/325MG 1 EACH TABLET PO PRN ×2 (12:49→18:30)
[2017-04-26] MEDS: HYDROGEL DRESSING 90 GM TUBE TP SCH (13:04)
[2017-04-26 16:00] VITALS: BP 130/66
[2017-04-26] MEDS: CEFTRIAXONE 1 G in IV D5W 50 ML IV SCH (16:25)
--- NOTE | 2017-04-26 18:37 | NUR ---
RN CLOSING NOTES PT COMFORTABLY IN BED, TOLERATING ROOM AIR 02 SAT 95% IN STABLE CONDITION. RESPIRATION EVEN AND UNLABORED. KEPT CLEAN AND DRY AND COMFORTABLE, ALL NURSING CARE RENDERED. NEEDS ATTENDED AND ANTICIPATED, FREQUENT VISUAL CHECK DONE FOR SAFETY EVERY 2 HOURS. TX ORDERED, GOOD SKIN CARE PROVIDED. REPOSITION Q2H. BED IN LOW POSITION, LOCKED AND TWO SIDE RAILS ARE UP ON AT ALL TIMES TO ENSURE SAFETY. SAFE HAZARD FREE ENVIRONMENT PROVIDED. CALL LIGHT WITHIN EASY TO REACH. WILL ENDORSE NEXT SHIFT CONTINUITY OF CARE
--- NOTE | 2017-04-26 19:00 | NUR ---
MS RN NOTE: PATIENT RESTING IN BED, A/OX 1. IN STABLE, NO ACUTE DISTRESS NOTED. BREATHING EVEN AND UNLABORED, NO SOB NOTED. BED LOCKED AND IN LOWEST POSITION, CALL LIGHT IN REACH. WILL CONTINUE TO MONITOR.
[2017-04-26 20:00] VITALS: BP_SYST 155; BP_SYST 160; BP_DIAS 69; BP_DIAS 75
[2017-04-27] MEDS: LORAZEPAM INJ 2 MG/ML VIAL IV PRN ×2 (00:23→08:29)
--- NOTE | 2017-04-27 01:24 | NUR ---
MS RN NOTES PT ASLEEP AND EASILY AWAKEN REMAINS CALM VS BP 125/61 R 19 T 98.7 P 87
--- NOTE | 2017-04-27 06:24 | NUR ---
MS RN CLOSING NOTES PT TOLERATING ROOM AIR 02 SAT 98% PT ASLEEP AND EASILY AWAKEN, NO S/S OF DISTRESS, STABLE CONDITION. RESPIRATION EVEN AND UNLABORED. TX ORDERED, GOOD SKIN CARE PROVIDED. ALL NURSING CARE RENDERED. NEEDS ATTENDED AND ANTICIPATED, KEPT CLEAN AND DRY AND COMFORTABLE, FREQUENT VISUAL CHECK DONE FOR SAFETY EVERY 2 HOURS. REPOSITION Q2H. ON LOW BED AT ALL TIMES TO ENSURE SAFETY. SAFE HAZARD FREE ENVIRONMENT PROVIDED. CALL LIGHT WITHIN EASY TO REACH. WILL ENDORSE NEXT SHIFT CONTINUITY OF CARE
--- NOTE | 2017-04-27 07:20 | NUR ---
RECEIVED PATIENT AWAKE, CONFUSED, COMBATIVE, DISORIENTED. PATIENT IS IN BED. BED IS LOCKED IN LOWEST POSITION, SIDE RAILS UP X3, CALL LIGHT WITHIN REACH. PATIENT'S ROOM CLOSE TO THE NURSES STATION FOR VISUALIZATION AND FREQUENT ROUNDS. EDUCATED THE PATIENT TO USE THE CALL LIGHT TO CALL FOR ASSISTANCE. VERBALIZED UNDERSTANDING. ALL BELONGINGS WITHIN REACH. ALL NEEDS ARE MET. WILL CONTINUE TO ASSESS/MONITOR THROUGHOUT THE SHIFT.
[2017-04-27 08:00] VITALS: BP 155/68
--- NOTE | 2017-04-27 08:20 | NUR ---
PATIENT ATTEMPTED TO GET OUT OF THE BED. WAS ABLE TO TAKE ONE OF THE LEGS OUT OF THE BED. RN RESPONDED TO BED ALARM. PATIENT ASSISTED TO BED SAFELY. MATTEMPTED TO REORIENT THE PATIENT UNSUCCESSFULLY.
[2017-04-27] MEDS: MULTIVITAMINS,THERAGRAN 1 UDTAB TABLET PO SCH (08:32)
[2017-04-27] MEDS: ENOXAPARIN SODIUM 30 MG/0.3 ML DISP.SYRIN SQ SCH (08:36)
[2017-04-27] MEDS: PROSOURCE / PROSTAT (PYXIS) 30 ML UDC GT SCH (08:37)
[2017-04-27] MEDS: HYDROGEL DRESSING 90 GM TUBE TP SCH (08:38)
[2017-04-27] MEDS: BACITRACIN/POLYMYXIN B 15 GM TUBE TP SCH (08:42)
[2017-04-27] MEDS: CLOTRIMAZOLE 1% 15 GM TUBE TP SCH ×2 (08:42→16:40)
--- NOTE | 2017-04-27 08:54 | NUR ---
PATIENT IS VERY AGITATED AND INCONSOLABLE. ATTENTED TO PULL OUT THE LEO CATHETER UNSUCSESSFULLY. PATIENT IS SCREAMING "SAVE THE PLANE". ATTEMPTED TO REORIENT THE PATIENT, UNSUCCESSFULLY. ATIVAN ADMINISTERED PRESCRIBED
--- NOTE | 2017-04-27 09:59 | NUR ---
PATIENT ATTEMPTED TO PULL HIS LEO OUT. ANJEL FRIEND AT THE BEDSIDE. POSTAL SUPPORT EMPLOYEE INFORMED. ASKED POSTAL SUPPORT EMPLOYEE IF THERE IS AN AVAILABLE SITTER. AWAITING FOR AN ANSWER.
--- NOTE | 2017-04-27 10:00 | NUR ---
received an order for a sitter from Dr Ellsworth
--- NOTE | 2017-04-27 10:05 | NUR ---
Wound Care performed as ordered.
[2017-04-27] MEDS: HYDROMORPHONE INJ 0.5 MG/0.5 ML SYRINGE IV PRN ×2 (10:36→19:22)
--- NOTE | 2017-04-27 10:40 | NUR ---
PATIENT IS GRIMACING AND SCREAMING. INCONSOLABLE. PATIENT ATTEMPTED TO PULL OUT HIS LEO. CALLED DR. AMAYA. PER DR AMAYA PLACE PATIENT IN BILATERAL SOFT WRIST RESTRAINS AND ADMINISTER DILUDED ORDERED. WILL FOLLOWED ORDERS RECEIVED.
--- NOTE | 2017-04-27 11:05 | NUR ---
Patient is attempting to pull out the iv catheter. Patient is screaming "our airplane is on fire". Attempted to reorient unsuccessfully. Bilateral soft wrist restrains applied according to protocol for patient's safety. Patient's room is in front of nurses station. Sitter at the bedside. Will offer food/drinks every 15 minutes. Will release restrains frequently and as soon as the patient cooperates/calms down.
--- NOTE | 2017-04-27 11:39 | NUR ---
Received an order from Adiel Chinchilla for [facility]. Called central supply for low air loss mattress.
--- NOTE | 2017-04-27 12:17 | NUR ---
Specialty matrass applied to the bed. Patient is sleeping. restraints released. Sitter at the bedside.
[2017-04-27 16:00] VITALS: BP 123/65
[2017-04-27] MEDS: CEFTRIAXONE 1 G in IV D5W 50 ML IV SCH (16:40)
--- NOTE | 2017-04-27 18:27 | NUR ---
PATIENT IS ASLEEP, EASILY AWAKEN. FAMILY FRIEND AT THE BEDSIDE. PATIENT IS IN BED WITH A SPECIALTY MATRASS. WOUND CARE PERFORMED ORDERED. ALL MEDICATIONS ADMINISTERED PRESCRIBED. PATIENT'S IV IS INTACT/SALINE LOCK. LEO CATHETER DRAINING TEA-COLORED URINE. RESTRAINTS ARE NOT ADMINISTERED. 1:1 SITTER AT THE BEDSIDE. ALL DUE MEDICATIONS ADMINISTERED WITH PATIENT TOLERATING WELL. WILL ENDORSE TO THE AUTOMATION MACHINE OPERATOR NURSE FOR CARLOS MANUEL.
--- NOTE | 2017-04-27 19:00 | NUR ---
PATIENT ATTEMPTED TO PULL OUT HIS IV CATHETER AND LEO. RESTRAINTS REAPPLIED.
--- NOTE | 2017-04-27 19:12 | NUR ---
PATIENT IS SCREAMING "IM IN PAIN". GRIMACING MOANING AND GRASPING THE LOW BACK SITE. WILL ADMINISTER DILAUDID ORDERED.
--- NOTE | 2017-04-27 19:36 | NUR ---
ADMINISTERED PAIN MEDICATIONS. REASSESSED IN 5 MINUTES. PATIENT SEEMS RELAXED WITH THE EYES CLOSED, BUT RESPONSIVE TO VERBAL STIMULI. ENDORSED TO THE VENEER MEASURER NURSE FOR, CARLOS MANUEL.
--- NOTE | 2017-04-27 19:57 | NUR ---
RECIEVED PATIENT YELLING AND MOVING ABOUT IN THE BED AIMLESSLY, DAY NURSE MEDICATING HIM WITH DILAUDID FOR PAIN. HE CALMED DOWN AND DRIFTTED OFF TO SLEEP. GA 24 SALINE LOCK RIGHT HAND PATENT 02 ON 2 LITERS, NOTED WHEN HE PULLED OFF THE NASAL CANNULA HE DESATES TO 85% HE IS CONFUSED AND DISORIENTATED. FAMILY FRIEND AT THE BEDSIDE, PATIENT NOT LISTENING TO HIM WHEN HE TELLS HIM TO BEHAVE OR CALM DOWN. WRIST RESTRAINTS ON TENISHA WRISTS D/T HE PULSS AT HIS CANNUKA AND SALINE LOCK AND MAKES ATTEMPS TO GET GET OOB. BED ALARM ON AND ACROSS FROM THE NURSING STATION FOR SAFETY. LEO DRAINAGE DARK YELLOW HE IS ON A LOW AIR MATTRES D/T SKIN WOUND PRESENT. WILL MONITOR CLOSELY
[2017-04-27 20:00] VITALS: BP 126/80
[2017-04-27 20:14] VITALS: BP 126/80
[2017-04-28] MEDS: HYDROMORPHONE INJ 0.5 MG/0.5 ML SYRINGE IV PRN ×2 (06:39→14:42)
--- NOTE | 2017-04-28 07:31 | NUR ---
PATIENT BROKE HIS IV TUBING INTO 3 PIECES AND PULLED OUT THE IV RESTARTED RIGHT AC IV AT A TKO RATE NOTED ON THE MID BACK MEPELEX COVERED WOUND SLEPT THRU THE NIGHT BUT WHEN AWAKE HE ATTEMPTS TO GET OOB AND TAKE OFF THE 02 AND DRESSING AROUND THE IV SITE CLOSE MONITORING
[2017-04-28 08:00] VITALS: BP 116/50
[2017-04-28] MEDS: MULTIVITAMINS,THERAGRAN 1 UDTAB TABLET PO SCH (08:54)
[2017-04-28] MEDS: ENOXAPARIN SODIUM 30 MG/0.3 ML DISP.SYRIN SQ SCH (08:55)
[2017-04-28] MEDS: PROSOURCE / PROSTAT (PYXIS) 30 ML UDC GT SCH (08:56)
[2017-04-28] MEDS: CLOTRIMAZOLE 1% 15 GM TUBE TP SCH ×2 (08:57→17:13)
[2017-04-28] MEDS: BACITRACIN/POLYMYXIN B 15 GM TUBE TP SCH (08:58)
[2017-04-28] MEDS: HYDROGEL DRESSING 90 GM TUBE TP SCH (08:59)
--- NOTE | 2017-04-28 09:01 | NUR ---
MS RN NOTES PATIENT IN BED, AWAKE. A/O X1 WITH CONFUSION, TENISHA SOFT WRIST RESTRAINT IN PLACE. REORIENT PATIENT, DENIES PAIN. OXYGEN SAT 92% ON 2L VIA NC, NO SOB. IVC CATH IN RIGHT AC PATENT AND INTACT. BED LOW AND LOCK, SIDE RAIL UP X2. CALL LIGHT WITHIN REACH. WILL CONT TO MONITOR.
[2017-04-28] MEDS: LORAZEPAM INJ 2 MG/ML VIAL IV PRN ×2 (11:08→22:05)
[2017-04-28] MEDS ORDERED: KEY,NONCONTROL,TO KEEP IN PYXI 1 EA MC ONE (13:12)
[2017-04-28 16:00] VITALS: BP 134/70
[2017-04-28] MEDS: CEFTRIAXONE 1 G in IV D5W 50 ML IV SCH (16:37)
--- NOTE | 2017-04-28 18:37 | NUR ---
MS RN CLOSING NOTES PATIENT IN BED, SLEEPING, AROUSES EASILY. DRESSING CHANGED TO MID BACK WOUND, TURN AND REPOSITION, ON NIDA MATTRESS. EPISODE OF AGITATION AND ANXIETY TODAY, MEDICATED WITH ATIVAN 1MG IVP PRN, EFFECTIVE. BILAT. SOFT WRIST RESTRAINTS IN PLACE, WITH GOOD CIRCULATION. LEO CATH INTACT, DRAINING TO GRAVITY, URINE CLEAR AND YELLOW. PLACE CALL LIGHT WITHIN REACH, BED LOW AND LOCKED, SIDE RAILS UP X2. PLAN TO CONT HOSP PER MD. WILL ENDORSE TO ONCOMING RN.
--- NOTE | 2017-04-28 19:40 | NUR ---
MS RN OPENING NOTES RECEIVED PATIENT IN BED, ASLEEP EASILY AROUSED. PATIENT IS CONFUSED, A/O x1. PATIENT HAS SOFT WRIST RESTRAINS BILATERALLY. CAPILLARY REFILL IS LESS THAN 3 SECONDS IN UPPER EXTREMITIES BILATERALLY. PATIENT IS ON ROOM AIR. NO APPARENT DISTRESS OR DISCOMFORT NOTED. LEO CATHETER IN PLACE. RIGHT AC AND RIGHT WRIST HL. PATENT AND INTACT. FLASHED WITH SALINE. PATIENT KEPT CLEAN AND COMFORTABLE.SAFETY MEASURES IN PLACE: BED IN LOW LOCKED POSITION, BED ALARM IS ON. SIDERAILS UP x4, CALL LIGHT WITHIN REACH. WILL CONTINUE TO MONITOR AND REASSESS THE NEED FOR RESTRAINTS.
[2017-04-28 21:00] VITALS: BP 155/75
[2017-04-28] MEDS ORDERED: HYDROMORPHONE INJ 2 MG/ML DISP.SYRIN ONE (23:16)
[2017-04-28] MEDS ORDERED: HYDROMORPHONE INJ 2 MG/ML DISP.SYRIN IV PRN (23:30)
[2017-04-29] MEDS: LORAZEPAM INJ 2 MG/ML VIAL IV PRN (04:43)
[2017-04-29 06:48] LABS: BASOPHILS % (AUTO) 0.2 % (0.0-2.0); EOSINOPHILS # (AUTO) 0.1 /CMM (0.0-0.7); EOSINOPHILS % (AUTO) 0.8 % (0.0-6.0); HEMATOCRIT 33 % (39-51); HEMOGLOBIN 10.6 g/dL (13.5-17.5); LYMPHOCYTES # (AUTO) 0.7 /CMM (0.8-4.8); LYMPHOCYTES % (AUTO) 6.5 % (20.0-44.0); MEAN CORPUSCULAR HEMOGLOBIN 29 PG (26.0-33.0); MEAN CORPUSCULAR HGB CONC 32 g/dl (31.0-36.0); MEAN CORPUSCULAR VOLUME 89 fL (80-96); MONOCYTES # (AUTO) 0.6 /CMM (0.1-1.30); MONOCYTES % (AUTO) 6.1 % (2.0-12.0); NEUTROPHILS # (AUTO) 8.7 /CMM (1.8-8.9); NEUTROPHILS % (AUTO) 86.4 % (43.0-81.0); PLATELET COUNT (AUTO) 315 /CMM (150-450); RDW COEFFICIENT OF VARIATION 16.4 (11.5-15.0); WHITE BLOOD COUNT (AUTO) 10.1 K/uL (4.3-11.0)
--- NOTE | 2017-04-29 07:02 | NUR ---
MS RN CLOSING NOTES PATIENT IN BED, AWAKE LETHARGIC AND CONFUSED, ORIENTED X1. PATIENT HAS EPISODES OF AGITATED AND AGGRESSIVE BEHAVIOR, PULLING THE IV LINES AND CATHETER OUT. PATIENT WAS GIVEN ATIVAN 1MG IV PUSH, WHICH WAS NOT EFFECTIVE. SOFT WRIST RESTRAINS IN PLACE BILATERALLY, MD AWARE. NORMAL CIRCULATION, CAPILLARY REFILL IS LESS THAN 3 SECONDS IN UPPER EXTREMITIES BILATERALLY. PATIENT IS ON ROOM AIR. NO APPARENT DISTRESS OR DISCOMFORT NOTED. LEO CATHETER IN PLACE. LEFT FOREARM HL IN PLACE. PATENT AND INTACT. PATIENT KEPT COMFORTABLE. SAFETY MEASURES IN PLACE: BED IN LOW LOCKED POSITION, BED ALARM IS ON. SIDERAILS UP x4, CALL LIGHT WITHIN REACH. WILL ENDORSE TO DAYSHIFT NURSE FOR CONTINUITY OF CARE. .
[2017-04-29 07:08] LABS: CARBON DIOXIDE 30 mmol/L (21-32); CHLORIDE 109 mmol/L (98-107); CREATININE 0.9 mg/dL (0.6-1.3); GLUCOSE 113 mg/dL (74-106); POTASSIUM 4.3 mmol/L (3.5-5.1); SODIUM SERUM 148 mmol/L (136-145); UREA NITROGEN, BLOOD 18 mg/dL (7-18)
[2017-04-29 07:22] LABS: PHOSPHORUS 2.2 mg/dL (2.5-4.9)
[2017-04-29 07:24] LABS: CALCIUM, SERUM 8.8 mg/dL (8.5-10.1)
--- NOTE | 2017-04-29 07:35 | NUR ---
MS/RN Patient received Patient received from shift supervisor melting. Continues with bilateral soft wrist restraints for safety. 2 liters oxygen via nasal cannula to keep saturations >94%. Bed in low setting, side rails X3 in upright position, brakes locked. Will continue to monitor and ensure safety.
[2017-04-29 08:00] VITALS: BP 135/77
[2017-04-29] MEDS: MULTIVITAMINS,THERAGRAN 1 UDTAB TABLET PO SCH (08:16)
[2017-04-29] MEDS: PROSOURCE / PROSTAT (PYXIS) 30 ML UDC GT SCH (08:16)
[2017-04-29] MEDS: ENOXAPARIN SODIUM 30 MG/0.3 ML DISP.SYRIN SQ SCH (08:20)
--- NOTE | 2017-04-29 09:00 | NUR ---
MS/RN Dilaudid Dilaudid 1mg administered as patient continues to be restless, possibly due to pain.
[2017-04-29] MEDS: HYDROGEL DRESSING 90 GM TUBE TP SCH (09:26)
[2017-04-29] MEDS: HYDROMORPHONE INJ 0.5 MG/0.5 ML SYRINGE IV PRN (09:26)
[2017-04-29] MEDS: BACITRACIN/POLYMYXIN B 15 GM TUBE TP SCH (09:27)
[2017-04-29] MEDS: CLOTRIMAZOLE 1% 15 GM TUBE TP SCH ×2 (09:27→16:45)
--- NOTE | 2017-04-29 10:05 | NUR ---
MS/RN S/B Dr Ellsworth Seen by Dr Ellsworth - psych consult ordered for medication recommendations, sitter also ordered for safety. Patient still has soft wrist restraints but continues to throw legs over edge of bed and is at risk of falling. Nursing home health clinical supervisor made aware of order, face sheet faxed to [facility].
--- NOTE | 2017-04-29 10:35 | NUR ---
MS/RN S/B Dr Johnson Seen by Dr Johnson - medication ordered. [facility], starting tomorrow, Dr Tomlinson will resume care of patient and decide if patient needs to be admitted to psych.
[2017-04-29] MEDS: OLANZAPINE 5 MG/TAB.RAPDIS PO SCH ×2 (11:17→21:53)
[2017-04-29] MEDS ORDERED: K PHOS NEUTRAL 250 MG TABLET PO ONE (13:00)
--- NOTE | 2017-04-29 13:50 | NUR ---
MS/RN Behavior Patient calm at this time, will continue to monitor.
[2017-04-29 16:00] VITALS: BP 139/78
[2017-04-29] MEDS: CEFTRIAXONE 1 G in IV D5W 50 ML IV SCH (16:00)
[2017-04-29] MEDS ORDERED: ALBUTEROL FS 2.5 MG/0.5 ML VIAL.NEB IH PRN (18:00)
[2017-04-29] MEDS ORDERED: NA PHOS,M-B/NA PHOS,DI-BA 1 EA ENEMA RC PRN (18:00)
[2017-04-29] MEDS ORDERED: BISACODYL SUPP (10 MG) 10 MG/SUPP.RECT SUPP.RECT RC PRN (18:00)
--- NOTE | 2017-04-29 18:31 | NUR ---
MS/RN End note Patient now becoming increasingly confused and agitated, climbing out of bed even though still has bilateral soft wrist restraints. Patient has already been medicated, but now not working. Nursing terminal operations supervisor made aware as patient has earlier order for sitter. Per Alyssa, no extra COLLECTIONS MANAGER available. Daughter Rajani already contacted and unable to come back and sit with father this evening. Will continue to closely monitor and endorse to human resource advisor.
--- NOTE | 2017-04-29 19:05 | NUR ---
RN NOTES RECEIVED PT ON BED, HOB ELEVATED, ON ROOM AIR AND TOLERATED WELL. PT ALERT AND ORIENTED X1, WITH CONFUSION AND DISORIENTATION. BILATERAL WRIST RESTRAINT ON, WITH GOOD CIRCULATION NOTED. IV ACCESS ON LEFT FOREARM PATENT AND INTACT. PT CONSISTENTLY MOVING IN BED. SAFETY MEASURES AND FALL PRECAUTION OBSERVED. WILL CONTINUE TO MONITOR PT.
[2017-04-29 20:00] VITALS: BP 165/82
[2017-04-29] MEDS: MIRTAZAPINE 15 MG TABLET PO SCH (21:52)
[2017-04-29] MEDS: ATORVASTATIN 40 MG TABLET PO SCH (21:52)
[2017-04-29] MEDS: TAMSULOSIN 0.4 MG CAP.SR.24H PO SCH (21:52)
[2017-04-29 22:00] VITALS: BP 165/82
[2017-04-30 06:50] LABS: CALCIUM, SERUM 8.3 mg/dL (8.5-10.1); CARBON DIOXIDE 28 mmol/L (21-32); CHLORIDE 103 mmol/L (98-107); CREATININE 0.8 mg/dL (0.6-1.3); GLUCOSE 115 mg/dL (74-106); MAGNESIUM 1.9 mg/dL (1.8-2.4); POTASSIUM 3.6 mmol/L (3.5-5.1); SODIUM SERUM 142 mmol/L (136-145); UREA NITROGEN, BLOOD 15 mg/dL (7-18)
[2017-04-30 06:59] LABS: EOSINOPHILS # (AUTO) 0.1 /CMM (0.0-0.7); EOSINOPHILS % (AUTO) 0.6 % (0.0-6.0); HEMATOCRIT 33 % (39-51); HEMOGLOBIN 10.7 g/dL (13.5-17.5); LYMPHOCYTES # (AUTO) 0.4 /CMM (0.8-4.8); LYMPHOCYTES % (AUTO) 4.5 % (20.0-44.0); MEAN CORPUSCULAR HEMOGLOBIN 29 PG (26.0-33.0); MEAN CORPUSCULAR HGB CONC 33 g/dl (31.0-36.0); MEAN CORPUSCULAR VOLUME 88 fL (80-96); MONOCYTES # (AUTO) 0.5 /CMM (0.1-1.30); MONOCYTES % (AUTO) 5.1 % (2.0-12.0); NEUTROPHILS # (AUTO) 8.6 /CMM (1.8-8.9); NEUTROPHILS % (AUTO) 89.8 % (43.0-81.0); PLATELET COUNT (AUTO) 324 /CMM (150-450); RDW COEFFICIENT OF VARIATION 16.1 (11.5-15.0); RED BLOOD CELL COUNT(AUTO) 3.73 MIL/uL (4.5-6.0); WHITE BLOOD COUNT (AUTO) 9.6 K/uL (4.3-11.0)
--- NOTE | 2017-04-30 07:40 | NUR ---
RN NOTES PT SLEPT ON AND OFF OVERNIGHT FOR VERY FEW HOURS. CONSTANTLY MOVING IN BED EVEN EYES ARE CLOSED. BILATERAL WRIST RESTRAINT ON WITH GOOD CIRCULATION.. SITTER AT BEDSIDE . WOUND CARE DRESSING DONE. TURNED AND REPOSITION Q2H. SITTER AT BEDSIDE. ENDORSED TO MORNING RN FOR CONTINUITY OF CARE.
--- NOTE | 2017-04-30 07:57 | NUR ---
MS/RN Patient received Patient received from shift manager. Remains confused and agitated, throwing legs over side of bed, attempting to climb out despite being in soft wrist restraints and with sitter. Safety measures in place, will continue to monitor and ensure safety.
[2017-04-30 08:00] VITALS: BP 127/91
[2017-04-30] MEDS: FERROUS SULFATE (325 MG) 325 MG/TAB TABLET PO SCH (08:38)
[2017-04-30] MEDS: GABAPENTIN 100 MG CAPSULE PO SCH ×3 (08:38→17:19)
[2017-04-30] MEDS: CLOPIDOGREL BISULFATE 75 MG TABLET PO SCH (08:38)
[2017-04-30] MEDS: MULTIVITAMINS,THERAGRAN 1 UDTAB TABLET PO SCH (08:38)
[2017-04-30] MEDS: FINASTERIDE (5 MG) 5 MG TABLET PO SCH (08:38)
[2017-04-30] MEDS: DOCUSATE SODIUM 100 MG CAPSULE PO SCH ×2 (08:38→17:18)
[2017-04-30] MEDS: OLANZAPINE 5 MG/TAB.RAPDIS PO SCH ×2 (08:38→20:57)
[2017-04-30] MEDS: PROSOURCE / PROSTAT (PYXIS) 30 ML UDC GT SCH (08:39)
[2017-04-30] MEDS: METOPROLOL TARTRATE 25 MG TABLET PO SCH (08:39)
[2017-04-30] MEDS: ENOXAPARIN SODIUM 30 MG/0.3 ML DISP.SYRIN SQ SCH (08:40)
[2017-04-30] MEDS: HYDROGEL DRESSING 90 GM TUBE TP SCH (08:41)
[2017-04-30] MEDS: BACITRACIN/POLYMYXIN B 15 GM TUBE TP SCH (08:42)
[2017-04-30] MEDS: CLOTRIMAZOLE 1% 15 GM TUBE TP SCH ×2 (08:42→17:20)
--- NOTE | 2017-04-30 09:00 | NUR ---
MS/RN Medications Only able to administer half of scheduled meds due to patient non compliance.
--- NOTE | 2017-04-30 11:00 | NUR ---
MS/RN PT Seen by PT - able to sit on edge of bed only, unable to stand due to balance and patient non cooperation.
--- NOTE | 2017-04-30 11:30 | NUR ---
MS/RN Behavior Patient remains agitated and restless, constantly throwinglegs over side of bed and trying to get up. Will reorient and ensure safety.
--- NOTE | 2017-04-30 12:00 | NUR ---
MS/RN Restraints Both wrist restraints removed for very short periods of time to allow for range of motion exercises.
[2017-04-30] MEDS ORDERED: K PHOS NEUTRAL 250 MG TABLET PO ONE (13:00)
--- NOTE | 2017-04-30 13:32 | NUR ---
MS/RN S/B Dr Tomlinson Seen by Dr Tomlinson - will look at medications and adjust as needed, possible admission to [facility] when medically cleared.
[2017-04-30 16:00] VITALS: BP 141/70
--- NOTE | 2017-04-30 18:33 | NUR ---
MS/RN End note Patient much calmer and cooperative this afternoon, restraints being released for two hours. All needs attended, has been turned and repositioned every 2-3 hours throughout the day to prevent further skin breakdown and to prevent further damage to mid back wound. Will endores to machinist 2nd shift.
--- NOTE | 2017-04-30 19:00 | NUR ---
MS RN NOTE: PATIENT RESTING IN BED,ALERT TO SELF IN STABLE, NO ACUTE DISTRESS NOTED. BREATHING EVEN AND UNLABORED, NO SOB NOTED. BED LOCKED AND IN LOWEST POSITION, CALL LIGHT IN REACH. WILL CONTINUE TO MONITOR.
[2017-04-30 20:00] VITALS: BP 136/72
[2017-04-30] MEDS: ATORVASTATIN 40 MG TABLET PO SCH (20:57)
[2017-04-30] MEDS: CEFAZOLIN 1 GM in IV NS 0.9% 50 ML IV SCH (20:58)
[2017-04-30] MEDS: MIRTAZAPINE 15 MG TABLET PO SCH (21:00)
[2017-04-30] MEDS: TAMSULOSIN 0.4 MG CAP.SR.24H PO SCH (21:00)
[2017-04-30] MEDS: IV NS 0.9% 1,000 ML IV PRN (21:01)
--- NOTE | 2017-05-01 06:44 | NUR ---
MS RN CLOSING NOTES PT COMFORTABLY ASLEEP AND EASILY AWAKEN, TOLERATING ROOM AIR 02 SAT 98% 1:1 SITTER, IN STABLE CONDITION. RESPIRATION EVEN AND UNLABORED. KEPT CLEAN AND DRY AND COMFORTABLE, ALL NURSING CARE RENDERED. NEEDS ATTENDED AND ANTICIPATED, FREQUENT VISUAL CHECK DONE FOR SAFETY EVERY 2 HOURS. GOOD SKIN CARE PROVIDED. REPOSITION Q2H. ON LOW BED AT ALL TIMES TO ENSURE SAFETY. SAFE HAZARD FREE ENVIRONMENT PROVIDED. CALL LIGHT WITHIN EASY TO REACH. WILL ENDORSE NEXT SHIFT CONTINUITY OF CARE
--- NOTE | 2017-05-01 07:30 | NUR ---
RN MS NOTES PT IN BED, AWAKE, VERBALLY RESPONSIVE, WITH CONFUSION, DENIES PAIN, NOT IN DISTRESS, SITTER AT BEDSIDE, SAFETY PRECAUTIONS OBSERVED, IV FLUIDS INFUSING WELL, KEPT WARM AND COMFORTABLE.
[2017-05-01 08:00] VITALS: BP 143/88
[2017-05-01] MEDS: PROSOURCE / PROSTAT (PYXIS) 30 ML UDC GT SCH (09:11)
[2017-05-01] MEDS: DOCUSATE SODIUM 100 MG CAPSULE PO SCH ×2 (09:12→16:25)
[2017-05-01] MEDS: CLOPIDOGREL BISULFATE 75 MG TABLET PO SCH (09:12)
[2017-05-01] MEDS: FINASTERIDE (5 MG) 5 MG TABLET PO SCH (09:12)
[2017-05-01] MEDS: MULTIVITAMINS,THERAGRAN 1 UDTAB TABLET PO SCH (09:12)
[2017-05-01] MEDS: FERROUS SULFATE (325 MG) 325 MG/TAB TABLET PO SCH (09:12)
[2017-05-01] MEDS: METOPROLOL TARTRATE 25 MG TABLET PO SCH (09:12)
[2017-05-01] MEDS: OLANZAPINE 5 MG/TAB.RAPDIS PO SCH ×2 (09:12→20:24)
[2017-05-01] MEDS: HYDROGEL DRESSING 90 GM TUBE TP SCH (09:14)
[2017-05-01] MEDS: CLOTRIMAZOLE 1% 15 GM TUBE TP SCH ×2 (09:15→16:28)
[2017-05-01] MEDS: BACITRACIN/POLYMYXIN B 15 GM TUBE TP SCH (09:15)
[2017-05-01] MEDS: ENOXAPARIN SODIUM 30 MG/0.3 ML DISP.SYRIN SQ SCH (09:17)
[2017-05-01] MEDS: GABAPENTIN 100 MG CAPSULE PO SCH ×3 (09:19→16:25)
[2017-05-01] MEDS: CEFAZOLIN 1 GM in IV NS 0.9% 50 ML IV SCH ×2 (10:03→20:19)
[2017-05-01] MEDS: LORAZEPAM INJ 2 MG/ML VIAL IV PRN (15:26)
[2017-05-01 16:00] VITALS: BP 141/84
--- NOTE | 2017-05-01 18:30 | NUR ---
RN MS NOTES PT IN BED, WITH EPISODES OF TRYING TO GET OUT OF BED, SITTER AT BEDSIDE, SAFETY PRECAUTIONS OBSERVED, SEEN BY JANICE FLOUR BLENDER, F/C IN PLACE, DRAINING WELL WITH CLEAR, YELLOW URINE, IV FLUIDS INFUSING WELL, ALL NEEDS ATTENDED.
[2017-05-01 20:00] VITALS: BP 145/85
[2017-05-01] MEDS: IV NS 0.9% 1,000 ML IV PRN (20:20)
[2017-05-01] MEDS: MIRTAZAPINE 15 MG TABLET PO SCH (21:24)
[2017-05-01] MEDS: TAMSULOSIN 0.4 MG CAP.SR.24H PO SCH (21:24)
[2017-05-01] MEDS: ATORVASTATIN 40 MG TABLET PO SCH (21:24)
--- NOTE | 2017-05-02 07:58 | NUR ---
MS/RN Patient received Patient received from community dietitian. Alert to self, confused and with sitter at bedside for safety, appears in no distress or discomfort at this time. IVF infusing at 65ml/hr, no signs of infiltration seen. Safety measures in place, will continue to monitor and ensure safety.
[2017-05-02 08:11] VITALS: BP 127/80
[2017-05-02] MEDS: GABAPENTIN 100 MG CAPSULE PO SCH ×3 (09:06→17:09)
[2017-05-02] MEDS: CLOPIDOGREL BISULFATE 75 MG TABLET PO SCH (09:07)
[2017-05-02] MEDS: MULTIVITAMINS,THERAGRAN 1 UDTAB TABLET PO SCH (09:07)
[2017-05-02] MEDS: OLANZAPINE 5 MG/TAB.RAPDIS PO SCH ×2 (09:07→22:47)
[2017-05-02] MEDS: DOCUSATE SODIUM 100 MG CAPSULE PO SCH ×2 (09:07→17:00)
[2017-05-02] MEDS: ENOXAPARIN SODIUM 30 MG/0.3 ML DISP.SYRIN SQ SCH (09:07)
[2017-05-02] MEDS: FERROUS SULFATE (325 MG) 325 MG/TAB TABLET PO SCH (09:07)
[2017-05-02] MEDS: FINASTERIDE (5 MG) 5 MG TABLET PO SCH (09:07)
[2017-05-02] MEDS: METOPROLOL TARTRATE 25 MG TABLET PO SCH (09:08)
[2017-05-02] MEDS: BACITRACIN/POLYMYXIN B 15 GM TUBE TP SCH (09:09)
[2017-05-02] MEDS: CLOTRIMAZOLE 1% 15 GM TUBE TP SCH ×2 (09:09→17:09)
[2017-05-02] MEDS: HYDROGEL DRESSING 90 GM TUBE TP SCH (09:09)
--- NOTE | 2017-05-02 09:10 | NUR ---
MS/RN Medications Morning medications administered crushed with apple sauce.
[2017-05-02] MEDS: PROSOURCE / PROSTAT (PYXIS) 30 ML UDC GT SCH (09:12)
[2017-05-02] MEDS: CEFAZOLIN 1 GM in IV NS 0.9% 50 ML IV SCH (09:14)
--- NOTE | 2017-05-02 11:27 | NUR ---
MS/RN Behavior Has remained calmed and cooperative throughout the shift, no concerns. Will continue to monitor and ensure safety.
[2017-05-02] MEDS ORDERED: LIDOCAINE 2% 20 ML MDV TP STA (12:07)
--- NOTE | 2017-05-02 12:07 | NUR ---
MS/RN S/B Shayan Terry THERAPIST RRT Seen by THERAPIST RRT - patient to be discharged back to SNF tomorrow, mental status now back to baseline.
[2017-05-02] MEDS ORDERED: SILVER NITRATE APPLICATOR 1 EA BOX TP ONE (12:30)
--- NOTE | 2017-05-02 14:07 | NUR ---
MS/RN S/B PT Seen by PT - able to get out of bed and stand, with assist, able to partake in marching exercises.
[2017-05-02] MEDS ORDERED: LIDOCAINE 1%-EPI 1:100,000 20 ML VIAL TP ONE (15:00)
[2017-05-02 16:00] VITALS: BP 110/55
[2017-05-02] MEDS: DAKINS QUARTER STRENGTH (0.125%) 480 ML BOTTLE TOP SCH (17:30)
--- NOTE | 2017-05-02 18:00 | NUR ---
MS/RN S/B Dr Tapia Seen by Dr Tapia - bedside debridement of mid back wound performed at bedside. Long discussion with MD and daughter regarding treatment options, and poor prognosis. Family now wishing to go with hospice.
--- NOTE | 2017-05-02 18:18 | NUR ---
MS/RN End note Family have now spoken with Dr Tapia and Shayan Terry, and wish to stop any aggressive treatment and pursue hospice care, stating that although there is the option to insert GT and have long term care pharmacist IVAB for the osteomyelitis. Daughter Rajani stating that her father when coherent, had stated that he would never wish to be dependant on tube feedings, and at this point, want to follow his wishes and just keep him comfortable and pain free. manager business information Melissa bobo and will arrange, per Shayan, patient will remain in hospital for further three days. Patient at this time sleeping, appears in no distress or discomfort. will endorse to night shift supervisor.
[2017-05-02] MEDS ORDERED: CEFTRIAXONE 1 G in IV NS 0.9% 50 ML IV SCH (19:30)
--- NOTE | 2017-05-02 19:35 | NUR ---
RN NOTES RECEIVED PT SLEEPING BUT AROUSABLE, A/OX1, SITTER AT BEDSIDE, NO PAIN NOTED, NO SOB, SIDERAILSUPX2, CONTINUE TO MONITOR
[2017-05-02] MEDS ORDERED: FEE PK DOSING 1 MIN EA MC ONE (19:36)
[2017-05-02 20:00] VITALS: BP 140/66
[2017-05-02] MEDS: VANCOMYCIN 0.75 GM in IV D5W 250 ML IV SCH (22:37)
[2017-05-02] MEDS: TAMSULOSIN 0.4 MG CAP.SR.24H PO SCH (22:38)
[2017-05-02] MEDS: MIRTAZAPINE 15 MG TABLET PO SCH (22:38)
[2017-05-02] MEDS: ATORVASTATIN 40 MG TABLET PO SCH (22:38)
[2017-05-03] MEDS: DAKINS QUARTER STRENGTH (0.125%) 480 ML BOTTLE TOP SCH ×2 (05:30→17:05)
--- NOTE | 2017-05-03 07:00 | NUR ---
RN NOTES AWAKE, MORNING CARE RENDERED, F/C DRAINING CLEAR YELLOW URINE, PT.NEEDS ATTENDED
[2017-05-03 07:07] LABS: CALCIUM, SERUM 8.6 mg/dL (8.5-10.1); CARBON DIOXIDE 31 mmol/L (21-32); CHLORIDE 109 mmol/L (98-107); CREATININE 0.7 mg/dL (0.6-1.3); GLUCOSE 99 mg/dL (74-106); POTASSIUM 3.5 mmol/L (3.5-5.1); SODIUM SERUM 146 mmol/L (136-145); UREA NITROGEN, BLOOD 12 mg/dL (7-18)
--- NOTE | 2017-05-03 07:30 | NUR ---
RN OPENING NOTES RECEIVED PT. PT IS STABLE AND RESTING IN BED. A/OX2. NO S/S OF RESP DISTRESS OR SOB. PT HAS C/O PAIN IN BLE EXACERBATED WHEN REPOSITIONING. IV ACCESS LOCATED ON RIGHT FA INFUSING NS AT [facility]. PER MD NOTES ON 05/02/17, PT MAY POSSIBLY BE DC TO SNF, WILL F/U WITH CASE MANAGEMENT. SAFETY MEASURES IN PLACE, CALL LIGHT WITHIN REACH. WILL CONTINUE TO MONITOR.
[2017-05-03 08:46] VITALS: BP 150/68
[2017-05-03] MEDS: DOCUSATE SODIUM 100 MG CAPSULE PO SCH ×2 (09:00→16:58)
[2017-05-03] MEDS: MULTIVITAMINS,THERAGRAN 1 UDTAB TABLET PO SCH (09:25)
[2017-05-03] MEDS: FERROUS SULFATE (325 MG) 325 MG/TAB TABLET PO SCH (09:25)
[2017-05-03] MEDS: GABAPENTIN 100 MG CAPSULE PO SCH ×3 (09:25→17:04)
[2017-05-03] MEDS: OLANZAPINE 5 MG/TAB.RAPDIS PO SCH (09:25)
[2017-05-03] MEDS: PROSOURCE / PROSTAT (PYXIS) 30 ML UDC GT SCH (09:25)
[2017-05-03] MEDS: CLOPIDOGREL BISULFATE 75 MG TABLET PO SCH (09:25)
[2017-05-03] MEDS: FINASTERIDE (5 MG) 5 MG TABLET PO SCH (09:25)
[2017-05-03 09:26] VITALS: BP 150/68
[2017-05-03] MEDS: METOPROLOL TARTRATE 25 MG TABLET PO SCH (09:26)
[2017-05-03] MEDS: ENOXAPARIN SODIUM 30 MG/0.3 ML DISP.SYRIN SQ SCH (09:37)
[2017-05-03] MEDS: HYDROGEL DRESSING 90 GM TUBE TP SCH (09:38)
[2017-05-03] MEDS: BACITRACIN/POLYMYXIN B 15 GM TUBE TP SCH (09:38)
[2017-05-03] MEDS: CLOTRIMAZOLE 1% 15 GM TUBE TP SCH ×2 (09:38→17:05)
[2017-05-03] MEDS: VANCOMYCIN 0.75 GM in IV D5W 250 ML IV SCH (09:59)
[2017-05-03] MEDS: HYDROCODONE/APAP 5/325MG 1 EACH TABLET PO PRN (10:53)
--- NOTE | 2017-05-03 19:25 | NUR ---
DISCHARGE NOTE PT DISCHARGED TO [facility]. REPORT GIVEN TO SOHAN MEAD. ALL PT DOCUMENTATION SIGNED BY 2 RNS, COPIED AND PLACED IN CHART. PT REFUSED TO HAVE PHOTOS TAKEN OF WOUNDS, REPOSITIONING IS PAINFUL FOR THE PT. FC KEPT IN PLACE FOR USE AT SNF. PERIPHERAL IV REMOVED. PT LEFT IN AMBULANCE WITH PARAMEDICS.
== END 2017-05-03 19:30 | DRG 981 ==
LOC: ER 11:53 → MEDSG2 14:00
PROVIDERS: ADMIT Internal Medicine; ATTEND Internal Medicine
PROC: 0KBF0ZZ Excision of Right Trunk Muscle, Open Approach (ICD-10-PCS; principal; 2017-04-25)
PROC: 0PB40ZZ Excision of Thoracic Vertebra, Open Approach (ICD-10-PCS; 2017-05-02)
DX: N39.0 Urinary tract infection, site not specified (principal); L89.114 Pressure ulcer of right upper back, stage 4; N17.0 Acute kidney failure with tubular necrosis; G93.41 Metabolic encephalopathy; E44.0 Moderate protein-calorie malnutrition; E87.0 Hyperosmolality and hypernatremia; E11.69 Type 2 diabetes mellitus with other specified complication; E11.22 Type 2 diabetes mellitus with diabetic chronic kidney disease; M86.9 Osteomyelitis, unspecified; F03.91 Unspecified dementia, unspecified severity, with behavioral disturbance; M46.24 Osteomyelitis of vertebra, thoracic region; N13.8 Other obstructive and reflux uropathy; B96.4 Proteus (mirabilis) (morganii) as the cause of diseases classified elsewhere; E66.9 Obesity, unspecified; N40.1 Benign prostatic hyperplasia with lower urinary tract symptoms; Z86.73 Personal history of transient ischemic attack (TIA), and cerebral infarction without residual deficits; M81.0 Age-related osteoporosis without current pathological fracture; I12.9 Hypertensive chronic kidney disease with stage 1 through stage 4 chronic kidney disease, or unspecified chronic kidney disease; N18.9 Chronic kidney disease, unspecified; E78.5 Hyperlipidemia, unspecified; I87.2 Venous insufficiency (chronic) (peripheral); Z68.25 Body mass index [BMI] 25.0-25.9, adult; F29 Unspecified psychosis not due to a substance or known physiological condition; E86.1 Hypovolemia; E83.39 Other disorders of phosphorus metabolism; L89.019 Pressure ulcer of right elbow, unspecified stage; M40.209 Unspecified kyphosis, site unspecified; R62.51 Failure to thrive (child); Z66 Do not resuscitate
CPT/HCPCS: 36415; 71045-TC; 80048-TC; 80053-TC; 80061-TC; 80076-TC; 81000-TC; 82272-TC; 82553-TC; 82746; 83540-TC; 83605-TC; 83735-TC; 84100-TC; 84134-TC; 84443-TC; 84484-TC; 85025-TC; 85730-TC; 87040-TC; 87070-TC; 87081-TC; 87086-TC; 87186-TC; 97110-TC; 97112-TC; 97116-TC; 97530-TC; A4216; A4606; A6248; A6402; A6403; A6407; J0690; J0696; J1170; J1644; J1650; J1956; J2060; J3370; J3490; J7030; J7040; J7060; Z7610